=== PATIENT | female | born 1940 | race Caucasian/White ===

== ENCOUNTER 2020-02-07 10:01 | Inpatient (IN) ==
[2020-02-07] MEDS ORDERED: 0.9 % SODIUM CHLORIDE 500 ML IV ONE ×4 (10:12→13:17)
--- NOTE | 2020-02-07 10:41 | Emergency Department Note ---
Weakness HPI General Chief complaint: Weakness Stated complaint: UTI, weakness, unable to ambulate Time Seen by Provider: 02/07/20 10:04 Source: EMS Mode of arrival: EMS Limitations: no limitations History of Present Illness HPI Narrative: This pleasant 79-year-old female comes in by ambulance and accompanied by her caregiver, Severino, who is with her most days between 730 and a.m. and 430 to 7:30 PM. Her son stays with her at night. She is here because of persisting and worsening weakness. She was seen 5 days ago on the and diagnosed with a UTI. She has had these in the past. She is on Macro dantin chronically and cephalexin was added to her regimen. Culture was negative. This may have been suppressed by the nitrofurantoin. Patient denies blood in her stools (is on chronic warfarin for atrial fibrillation). Patient is a fairly good story and but occasionally gets confused per the caregiver. Her last INR 1 month ago was 2.2. Blood pressures are taken at home and are commonly 114-140 systolic and 60-70 diastolic. She has had no recent fever, chills, sweats but always feels quite cold. She reports that she has eaten a lot of cabbage recently. Does not take Tylenol very often maybe 1 time per week. Does have a living will with her son being POA. She does not want aggressive interventions given the high risk of severity and disability and this is consistent with her previous stated wishes per the caregiver. Related Data Home Medications Medication Instructions Recorded Confirmed diphenoxylate-atropine 2.5 1 tab PO BID PRN 04/03/19 02/07/20 mg-0.025 mg tablet ferrous sulfate 325 mg (65 mg 325 mg PO QDAY 05/02/19 02/07/20 iron) tablet polyethylene glycol 3350 [Miralax] 17 g PO PRN PRN 02/07/20 02/07/20 trazodone 200 mg PO QHS 02/07/20 02/07/20 Previous Rx's Medication Instructions Recorded blood sugar diagnostic #50 each 05/17/19 ondansetron 4 mg SL Q4-6HP PRN #14 tab 06/05/19 pantoprazole 40 mg tablet,delayed 40 mg PO QDAY #90 tab 07/12/19 release levothyroxine 50 mcg capsule 50 mcg PO QDAY #90 cap 08/14/19 nitroglycerin 0.4 mg sublingual 0.4 mg SUBLINGUAL PRN PRN #25 tab 09/27/19 tablet colchicine 0.6 mg tablet See Rx Instructions .ROUTE 12/14/19 .COMPLEX #30 tab warfarin 3 mg tablet See Rx Instructions .ROUTE 12/14/19 .COMPLEX #30 tab buspirone 5 mg tablet 5 mg PO BID #180 tab 12/15/19 hydrocodone 10 mg-acetaminophen 1 tab PO Q6H PRN #120 tab 12/21/19 325 mg tablet nitrofurantoin 100 mg PO ONCE #30 cap 01/04/20 monohydrate/macrocrystals 100 mg capsule atorvastatin 40 mg tablet See Rx Instructions .ROUTE 01/11/20 .COMPLEX #90 tab mirabegron 25 mg tablet,extended 25 mg PO Q24H #30 tab 01/11/20 release 24 hr Adjustable Hospital Bed #1 ea NS 01/18/20 metformin 500 mg tablet,extended 500 mg PO QDAY #30 tab 01/23/20 release 24hr cephalexin 500 mg PO QID #28 cap 02/02/20 baclofen 10 mg tablet 10 mg PO BID PRN #60 tab 02/07/20 Allergies Allergy/AdvReac Type Severity Reaction Status Date / Time Sulfa (Sulfonamide Allergy Mild Rash Verified 02/07/20 10:03 Antibiotics) peanut [PEANUT] Allergy Unknown COUGHING Verified 02/07/20 10:03 Doxepin AdvReac Intermediate elevated BP Verified 02/07/20 10:03 Review of Systems ROS ROS Narrative: Denies fevers chills or sweats but is always cold Occasional chest pain but nothing new Some chronic cough. May be a little short of breath No abdominal pain. Did have some nausea. Has some diarrhea. Takes medications for this. No vomiting. No hematochezia No dysuria or frequency No rashes No headaches. Does feel weak No lightheaded dizzy Has chronic anxiety. No depression. PFSH Narrative Patient History Narrative: Narrative: Medical/Surgical/Family History All Active Problems (Updated 02/07/20 @ 14:23 by Sanjay Louis MD) Sepsis associated hypotension (Acute) Anemia (Acute) Acute pyelonephritis (Acute) Septic shock (Acute) Elevated INR (Acute) History of gout (Chronic) Weakness (Acute) Acute UTI (Acute) Adverse reaction to antidepressant drug (Acute) Dizziness (Acute) Frontal headache (Acute) Insomnia (Acute) Urinary tract infection (Acute) Constipation (Acute) Atrial fibrillation (Chronic) Coronary artery disease (Chronic) Chronic diastolic heart failure (Chronic) 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) COPD (chronic obstructive pulmonary disease) (Chronic) Falls frequently (Acute) Simple chronic anemia (Chronic) Decreased mobility in bed (Acute) Fall (Acute) Minor head injury (Acute) Neck pain (Chronic) Insomnia (Chronic) Fatigue (Chronic) Knee pain (Chronic) Hypertension (Chronic) Hip pain (Chronic) Monoclonal paraproteinemia (Chronic) Edema (Chronic) Back pain (Chronic) Anemia, iron deficiency (Chronic) Memory loss (Chronic) Dermatitis (Chronic) Sinus bradycardia (Chronic) TIA (transient ischemic attack) (Chronic) Renal failure (Chronic) Left lumbar radiculopathy (Chronic) Dysphagia, unspecified (Chronic) Impairment of balance (Chronic) Anxiety (Chronic) Tinnitus (Chronic) Thyromegaly (Chronic) Weight loss (Chronic) Arthritis (Chronic) Reduced mobility (Chronic) BMI 24.0-24.9, adult (Chronic) Hypothyroidism (Chronic) Dyspnea (Chronic) Benign essential hypertension (Chronic) Hx pulmonary embolism (Chronic) Pulmonary hypertension (Chronic) GERD (gastroesophageal reflux disease) (Chronic) Asthma (Chronic) Diabetes mellitus (Chronic) Hyperlipidemia (Chronic) Anemia (Chronic) Chronic back pain (Chronic) Urinary incontinence (Chronic) Medical History (Updated 02/07/20 @ 14:23 by Sanjay Louis MD) Actinic keratosis (Inactive) Anemia (Chronic) Anemia, iron deficiency (Chronic) Anxiety (Chronic) Arthritis (Chronic) Asthma (Chronic) Atrial fibrillation (Chronic) Back pain (Chronic) Benign essential hypertension (Chronic) BMI 24.0-24.9, adult (Chronic) Chronic back pain (Chronic) Chronic diastolic heart failure (Chronic) COPD (chronic obstructive pulmonary disease) (Chronic) Coronary artery disease (Chronic) Dermatitis (Chronic) Diabetes mellitus (Chronic) Dysphagia, unspecified (Chronic) Dyspnea (Chronic) Edema (Chronic) Elevated blood pressure reading (Resolved) Encounter for long-term (current) use of medications (Resolved) Encounter for monitoring Coumadin therapy (Resolved) Falls frequently (Acute) Fatigue (Chronic) GERD (gastroesophageal reflux disease) (Chronic) Hip pain (Chronic) History of echocardiogram (Inactive 04/07/16) Hx pulmonary embolism (Chronic) Hyperlipidemia (Chronic) Hypertension (Chronic) Hypothyroidism (Chronic) Impairment of balance (Chronic) Insomnia (Chronic) Knee pain (Chronic) Left lumbar radiculopathy (Chronic) custodial (current) use of anticoagulants (Chronic) Memory loss (Chronic) Monoclonal paraproteinemia (Chronic) Chronically monitored by PCP for anemia. Night sweats (Inactive) Pulmonary hypertension (Chronic) Reduced mobility (Chronic) Renal failure (Chronic) Simple chronic anemia (Chronic) Sinus bradycardia (Chronic) Thyromegaly (Chronic) TIA (transient ischemic attack) (Chronic) Tinnitus (Chronic) Urinary incontinence (Chronic) Weight loss (Chronic) Surgical History H/O heart artery stent (Chronic) x2 post bypass History of (Chronic) History of carpal tunnel release (Chronic) History of carpal tunnel repair (Chronic) History of cholecystectomy (Chronic) History of colon surgery (Chronic) History of hernia repair (Chronic) History of open heart surgery (Chronic) 2009 Status post total shoulder arthroplasty (Chronic) Family History Skin cancer Father Diabetes Unknown Heart disease Unknown Asthma Unknown Social History Smoking Status: Never smoker Alcohol Intake Frequency: does not drink Exam Narrative Narrative: Narrative: General Limitations: no limitations General appearance: alert, cachectic (Mildly.), in no apparent distress, malaise and nontoxic Head Head: atraumatic and normocephalic Eye Eye: Present normal appearance and EOMI ENT ENT: Present normal oropharynx and mucous membranes dry (Mild-moderately.) Neck Neck: Present trachea midline; Absent lymphadenopathy and thyromegaly Chest Chest: Present symmetric chest wall rise Respiratory Respiratory: Present normal lung sounds bilaterally; Absent respiratory distress, rales/crackles, wheezes, stridor, accessory muscle use and prolonged expiratory phase Cardiovascular Cardiovascular: Present regular rate and normal rhythm; Absent systolic murmur and diastolic murmur Adbominal Abdominal: Present soft; Absent distention, tenderness, guarding, rebound, rigidity, organomegaly and mass Extremities Extremities: Absent pedal edema, pretibial edema, calf tenderness and cyanosis Back Back: Absent CVA tenderness (R) and CVA tenderness (L) Neurological Neurological: Present alert and oriented X3 Psychiatric Psychiatric: Present serious, polite and pleasant; Absent depressed, agitated, anxious and poor eye contact Skin Skin: Present cool, dry and pallor (Moderate); Absent cyanosis Course Vital Signs Vital signs: Vital Signs Temperature 98.1 F 02/07/20 10:01 Pulse Rate 62 02/07/20 10:01 Respiratory Rate 22 02/07/20 10:01 Blood Pressure 90/60 02/07/20 10:01 Pulse Oximetry (%) 94 02/07/20 10:01 Temperature 98.1 F 02/07/20 10:01 Pulse Rate 67 02/07/20 13:32 Respiratory Rate 17 02/07/20 14:07 Blood Pressure 119/57 02/07/20 14:07 Pulse Oximetry (%) 95 02/07/20 14:07 MDM MDM Narrative Medical decision making narrative: 10:16 AM - generalized weakness. Uncertain exact etiology. Will do cardiac and metabolic work-up. Seems to be hypotensive. Will give some IV fluids. Will check her INR. EKG is with atrial flutter with variable rates from 3-1 to 2-1 transmission. No ACS findings. Is not dissimilar to old EKG. 12:07 PM - I spoke with knife setter assembler, Dr. Davis, who agrees with repeat troponin and just monitoring further that it is unlikely that this is cardiac with her troponin of 0.10. Her creatinine went from 1.4-2.7 and this is the explanation for present. A future echo could be considered, etc. but urgent change or intervention at this point not indicated. 1:15 PM - patient has had some intermittent hypotension during this ER stay. She has been given now up to 1.5 L of normal saline. She again is going a little bit hypotensive into the upper 70s. We will give an additional 500 cc although she is not a very large person. Nursing will monitor carefully for any changes in respiratory status. 1:26 PM - chest x-ray results: 1. No acute abnormality 2. No interval change since 04/03/2019 1:38 PM - I spoke with blanket washer, Dr. Wilkes, who points out that patient is still probably in some degree of shock with uncertain or unidentified source and he suggests going ahead and doing a CT scan of the chest abdomen and pelvis. Catheterized UA comes back positive with leukocyte esterase and is quite large and multiple WBCs. This then likely could be a source for hypotension even in light of a normal white count and lactic acid and that she was on 2 antibiotics even though they are weaker type, nitrofurantoin and cephalexin. 1:48 PM - I spoke with Dr. Louis, hospitalist, who agrees with imaging and suggests an ultrasound. Patient is already getting the CT of the chest abdomen and pelvis and so this will be pursued. He is willing to admit patient but if patient has a stone or hydronephrosis may need urology which we do not currently have. Patient's INR was also 5.2 at 10:32 this morning. There is no suspicion of current bleeding in that she denies hematochezia or melena and her hemoglobin is stable. 2:43 PM - CT chest abdomen pelvis: 1. Suboptimal evaluation due to lack of intravenous contrast material and patient motion 2. No significant pulmonary parenchymal and melanotic. No evidence for significant pneumonia 3. No hydronephrosis or hydroureter Patient will therefore be admitted under the guidance of Dr. Louis, hospitalist. She is DNR per her request after discussing this with her. Lab Data Result diagrams: 02/07/20 10:10 02/07/20 10:10 Labs: Lab Results 02/07/20 02/07/20 02/07/20 Range/Units 10:10 10:10 10:10 WBC 7.8 (4.50-11.00) K/mcL RBC 2.94 L (3.59-5.38) M/mcL Hgb 9.4 L (11.2-15.7) g/dL Hct 29.6 L (34.1-44.9) % POC Hct (36.0-48.0) % MCV 100.7 H (80.0-100.0) fL MCH 32.0 (26.0-34.0) pg MCHC 31.8 (31.0-36.0) g/dL RDW 12.6 (11.5-14.5) % Plt Count 180 (140-440) K/mcL MPV 10.6 H (7.4-10.4) fL Gran % 69.7 (38.0-78.0) % Lymph % (Auto) 18.7 (15.5-49.0) % Cole % (Auto) 9.1 (1.0-12.0) % Eos % (Auto) 2.4 (0.0-7.0) % Baso % (Auto) 0.1 (0.0-2.0) % Gran # 5.43 (1.80-8.00) K/mcL Lymph # (Auto) 1.46 L (1.50-4.80) K/mcL Cole # (Auto) 0.71 (0.10-0.90) K/mcL Eos # (Auto) 0.19 (0.00-0.70) K/mcL Baso # (Auto) 0.01 (0.00-0.30) K/mcL POC PT (11.9-14.5) sec POC INR (0.9-1.2) VBG Lactic Acid 0.8 (0.5-2.0) mmol/L POC Sodium (133-145) mmol/L Sodium 131 L (133-145) mmol/L POC Potassium (3.3-5.1) mmol/L Potassium 5.8 H (3.3-5.1) mmol/L POC Chloride (96-108) mmol/L Chloride 102 (96-108) mmol/L Carbon Dioxide 14 L (22-30) mmol/L POC Total CO2 (22-30) mmol/L Anion Gap 15.0 (8-16) POC BUN (8-23) mg/dl BUN 84 H (8-23) mg/dl Creatinine 2.7 H (0.6-1.1) mg/dl POC Creatinine (0.6-1.1) mg/dl GFR Calculation 16 Glucose 123 H (70-105) mg/dL POC Glucose (70-105) mg/dL Calcium 8.2 L (8.6-10.4) mg/dl POC WB Ioniz Calcium (1.16-1.32) mmol/L Total Bilirubin 0.2 (0.0-1.0) mg/dL AST 13 (0-37) U/l ALT 9 (0-40) U/l Alkaline Phosphatase 56 (39-117) U/L Troponin T (0-0.03) ng/ml Total Protein 6.3 (5.9-8.4) gm/dL Albumin 3.1 L (3.2-5.2) gm/dL Globulin 3.2 (2.2-3.7) gm/dL Albumin/Globulin Ratio 1.0 (1.0-2.3) Procalcitonin (<0.10) ng/mL Urine Color Urine Appearance Urine pH (5.0-9.0) Ur Specific [place] (1.000-1.035) Urine Protein (NEG) mg/dL Urine Glucose (UA) (NEG) mg/dL Urine Ketones (NEG) mg/dL Urine Occult Blood (<0.03) mg/dL Urine Nitrate (NEG) Urine Bilirubin (NEG) mg/dL Urine Urobilinogen (NEG) mg/dL Ur Leukocyte Esterase (NEG) /uL Urine RBC (0-1) /hpf Urine WBC (0-4) /hpf Ur Squamous Epith Cells (0-4) /hpf Urine Bacteria (0) /hpf Urine Mucus (0) /hpf Ur Culture Indicated? 02/07/20 02/07/20 02/07/20 Range/Units 10:10 10:10 10:20 WBC (4.50-11.00) K/mcL RBC (3.59-5.38) M/mcL Hgb (11.2-15.7) g/dL Hct (34.1-44.9) % POC Hct (36.0-48.0) % MCV (80.0-100.0) fL MCH (26.0-34.0) pg MCHC (31.0-36.0) g/dL RDW (11.5-14.5) % Plt Count (140-440) K/mcL MPV (7.4-10.4) fL Gran % (38.0-78.0) % Lymph % (Auto) (15.5-49.0) % Cole % (Auto) (1.0-12.0) % Eos % (Auto) (0.0-7.0) % Baso % (Auto) (0.0-2.0) % Gran # (1.80-8.00) K/mcL Lymph # (Auto) (1.50-4.80) K/mcL Cole # (Auto) (0.10-0.90) K/mcL Eos # (Auto) (0.00-0.70) K/mcL Baso # (Auto) (0.00-0.30) K/mcL POC PT (11.9-14.5) sec POC INR (0.9-1.2) VBG Lactic Acid (0.5-2.0) mmol/L POC Sodium (133-145) mmol/L Sodium (133-145) mmol/L POC Potassium (3.3-5.1) mmol/L Potassium (3.3-5.1) mmol/L POC Chloride (96-108) mmol/L Chloride (96-108) mmol/L Carbon Dioxide (22-30) mmol/L POC Total CO2 (22-30) mmol/L Anion Gap (8-16) POC BUN (8-23) mg/dl BUN (8-23) mg/dl Creatinine (0.6-1.1) mg/dl POC Creatinine (0.6-1.1) mg/dl GFR Calculation Glucose (70-105) mg/dL POC Glucose (70-105) mg/dL Calcium (8.6-10.4) mg/dl POC WB Ioniz Calcium (1.16-1.32) mmol/L Total Bilirubin (0.0-1.0) mg/dL AST (0-37) U/l ALT (0-40) U/l Alkaline Phosphatase (39-117) U/L Troponin T 0.10 H* (0-0.03) ng/ml Total Protein (5.9-8.4) gm/dL Albumin (3.2-5.2) gm/dL Globulin (2.2-3.7) gm/dL Albumin/Globulin Ratio (1.0-2.3) Procalcitonin 0.19 (<0.10) ng/mL Urine Color Yellow Urine Appearance Cloudy Urine pH 5.0 (5.0-9.0) Ur Specific [place] 1.014 (1.000-1.035) Urine Protein Neg (NEG) mg/dL Urine Glucose (UA) Negative (NEG) mg/dL Urine Ketones Neg (NEG) mg/dL Urine Occult Blood 0.03 A (<0.03) mg/dL Urine Nitrate Neg (NEG) Urine Bilirubin Neg (NEG) mg/dL Urine Urobilinogen Neg (NEG) mg/dL Ur Leukocyte Esterase 250 A (NEG) /uL Urine RBC 4 H (0-1) /hpf Urine WBC > 182 H (0-4) /hpf Ur Squamous Epith Cells 4 (0-4) /hpf Urine Bacteria Few A (0) /hpf Urine Mucus Few (0) /hpf Ur Culture Indicated? Yes 02/07/20 02/07/20 02/07/20 Range/Units 10:46 11:03 12:13 WBC (4.50-11.00) K/mcL RBC (3.59-5.38) M/mcL Hgb (11.2-15.7) g/dL Hct (34.1-44.9) % POC Hct 26.0 L (36.0-48.0) % MCV (80.0-100.0) fL MCH (26.0-34.0) pg MCHC (31.0-36.0) g/dL RDW (11.5-14.5) % Plt Count (140-440) K/mcL MPV (7.4-10.4) fL Gran % (38.0-78.0) % Lymph % (Auto) (15.5-49.0) % Cole % (Auto) (1.0-12.0) % Eos % (Auto) (0.0-7.0) % Baso % (Auto) (0.0-2.0) % Gran # (1.80-8.00) K/mcL Lymph # (Auto) (1.50-4.80) K/mcL Cole # (Auto) (0.10-0.90) K/mcL Eos # (Auto) (0.00-0.70) K/mcL Baso # (Auto) (0.00-0.30) K/mcL POC PT 57.7 H (11.9-14.5) sec POC INR 5.2 H (0.9-1.2) VBG Lactic Acid (0.5-2.0) mmol/L POC Sodium 133 (133-145) mmol/L Sodium (133-145) mmol/L POC Potassium 5.8 H (3.3-5.1) mmol/L Potassium (3.3-5.1) mmol/L POC Chloride 105 (96-108) mmol/L Chloride (96-108) mmol/L Carbon Dioxide (22-30) mmol/L POC Total CO2 18 L (22-30) mmol/L Anion Gap (8-16) POC BUN 92 H (8-23) mg/dl BUN (8-23) mg/dl Creatinine (0.6-1.1) mg/dl POC Creatinine 2.6 H (0.6-1.1) mg/dl GFR Calculation Glucose (70-105) mg/dL POC Glucose 119 H (70-105) mg/dL Calcium (8.6-10.4) mg/dl POC WB Ioniz Calcium 1.23 (1.16-1.32) mmol/L Total Bilirubin (0.0-1.0) mg/dL AST (0-37) U/l ALT (0-40) U/l Alkaline Phosphatase (39-117) U/L Troponin T 0.08 H* (0-0.03) ng/ml Total Protein (5.9-8.4) gm/dL Albumin (3.2-5.2) gm/dL Globulin (2.2-3.7) gm/dL Albumin/Globulin Ratio (1.0-2.3) Procalcitonin (<0.10) ng/mL Urine Color Urine Appearance Urine pH (5.0-9.0) Ur Specific [place] (1.000-1.035) Urine Protein (NEG) mg/dL Urine Glucose (UA) (NEG) mg/dL Urine Ketones (NEG) mg/dL Urine Occult Blood (<0.03) mg/dL Urine Nitrate (NEG) Urine Bilirubin (NEG) mg/dL Urine Urobilinogen (NEG) mg/dL Ur Leukocyte Esterase (NEG) /uL Urine RBC (0-1) /hpf Urine WBC (0-4) /hpf Ur Squamous Epith Cells (0-4) /hpf Urine Bacteria (0) /hpf Urine Mucus (0) /hpf Ur Culture Indicated? Discharge Plan Patient/Caregiver Discharge Instructions Pt seen by COMMERCIAL LOAN OFFICER/PA only: No Clinical Impression: Weakness, Acute pyelonephritis, Septic shock, Elevated INR Anemia Qualifiers: Anemia type: unspecified type Qualified Code(s): D64.9 - Anemia, unspecified Patient Disposition: Xfer As Inpt ([facility]) Condition: Fair Follow up with: Lesvia Joseph ARNP [Primary Care Provider] - Prescriptions: No Action diphenoxylate-atropine [Lomotil] 2.5-0.025 mg tablet 1 tab PO BID PRN (Reason: Diarrhea) RF: 0 ferrous sulfate [FeroSul] 325 mg (65 mg iron) tablet 325 mg PO QDAY RF: 0 hydrocodone-acetaminophen 10-325 mg tablet 1 tab PO Q6H PRN (Reason: Pain) Qty: 120 RF: 0 Myrbetriq 25 mg tablet extended release 24 hr 25 mg PO Q24H Qty: 30 RF: 2 (DME) True Metrix Glucose Test Strip strip See Rx Instructions .ROUTE .MEDSUPPLY Qty: 50 RF: 5 pantoprazole 40 mg tablet,delayed release (DR/EC) 40 mg PO QDAY Qty: 90 RF: 4 levothyroxine 50 mcg capsule 50 mcg PO QDAY Qty: 90 RF: 2 nitroglycerin [Nitrostat] 0.4 mg tablet, sublingual 0.4 mg SUBLINGUAL PRN PRN (Reason: chest pain) Qty: 25 RF: 1 colchicine 0.6 mg tablet See Rx Instructions .ROUTE .COMPLEX Qty: 30 RF: 3 warfarin 3 mg tablet See Rx Instructions .ROUTE .COMPLEX Qty: 30 RF: 2 buspirone 5 mg tablet 5 mg PO BID Qty: 180 RF: 1 nitrofurantoin monohyd/m-cryst [Macrobid] 100 mg capsule 100 mg PO ONCE Qty: 30 RF: 4 atorvastatin 40 mg tablet See Rx Instructions .ROUTE .COMPLEX Qty: 90 RF: 0 (DME) Adjustable Hospital Bed Qty: 1 RF: 0 metformin 500 mg tablet extended release 24hr 500 mg PO QDAY Qty: 30 RF: 1 baclofen 10 mg tablet 10 mg PO BID PRN (Reason: pain) Qty: 60 RF: 6 ondansetron 4 MG tablet 4 mg SL Q4-6HP PRN (Reason: nausea or vomiting) Qty: 14 RF: 0 cephalexin [cephalexin] 500 MG capsule 500 mg PO QID Qty: 28 RF: 0 trazodone 50 mg Tablet 200 mg PO QHS RF: 0 polyethylene glycol 3350 [Miralax] 17 gram/dose powder 17 g PO PRN PRN (Reason: Constipation) RF: 0
[2020-02-07 10:57] LABS: Basophils # (Auto) 0.01 K/mcL (0.00-0.30); Basophils % (Auto) 0.1 % (0.0-2.0); Eosinophils # (Auto) 0.19 K/mcL (0.00-0.70); Eosinophils % (Auto) 2.4 % (0.0-7.0); Granulocytes % (Auto) 69.7 % (38.0-78.0); Hematocrit 29.6 % (34.1-44.9); Hemoglobin 9.4 g/dL (11.2-15.7); Lymphocytes # (Auto) 1.46 K/mcL (1.50-4.80); Lymphocytes % (Auto) 18.7 % (15.5-49.0); Mean Cell Volume 100.7 fL (80.0-100.0); Mean Corpuscular HGB Conc 31.8 g/dL (31.0-36.0); Mean Platelet Volume 10.6 fL (7.4-10.4); Monocytes # (Auto) 0.71 K/mcL (0.10-0.90); Monocytes % (Auto) 9.1 % (1.0-12.0); Platelet Count 180 K/mcL (140-440); RBC 2.94 M/mcL (3.59-5.38); Red Cell Distribution Width 12.6 % (11.5-14.5); WBC 7.8 K/mcL (4.50-11.00)
[2020-02-07 11:03] LABS: POC Blood Urea Nitrogen 92 mg/dl (8-23); POC CO2 18 mmol/L (22-30); POC Calcium, Ionized 1.23 mmol/L (1.16-1.32); POC Chloride 105 mmol/L (96-108); POC Creatinine 2.6 mg/dl (0.6-1.1); POC Glucose, Random 119 mg/dL (70-105); POC Potassium 5.8 mmol/L (3.3-5.1); POC Sodium 133 mmol/L (133-145)
[2020-02-07 11:05] LABS: POC INR 5.2 (0.9-1.2); POC Pro Time 57.7 sec (11.9-14.5)
--- NOTE | 2020-02-07 11:20 | XRay Report ---
INDICATION: weakness TECHNIQUE: AP portable semiupright chest x-ray COMPARISON: None FINDINGS:Previous median sternotomy Lungs:Lungs are negative. No focal pulmonary parenchymal infiltrate or mass Heart, vascular:No significant cardiomegaly. Pulmonary vascularity is normal. No pulmonary edema or pulmonary congestion Mediastinum, lucius:No mediastinal widening. No hilar mass Pleura:No pleural fluid. No pleural-based mass or calcification Skeletal:Negative. IMPRESSION: 1. No acute abnormality 2. No interval change since 04/03/2019 Interpreted and Authenticated by: Seymour Gannon 02/07/20
[2020-02-07 11:23] LABS: ALT/SGPT 9 U/l (0-40); AST/SGOT 13 U/l (0-37); Albumin 3.1 gm/dL (3.2-5.2); Alkaline Phosphatase 56 U/L (39-117); Bilirubin,Total 0.2 mg/dL (0.0-1.0); Calcium 8.2 mg/dl (8.6-10.4); Chloride 102 mmol/L (96-108); Globulin 3.2 gm/dL (2.2-3.7); Glucose 123 mg/dL (70-105)
[2020-02-07 11:26] LABS: Blood Urea Nitrogen 84 mg/dl (8-23); Carbon Dioxide 14 mmol/L (22-30); Glomerular Filtration Rate 16
[2020-02-07 12:19] LABS: Appearance,Urine CLOUDY; Bacteria,Urine FEW /hpf (0); Bilirubin,Urine NEG (NEG); Color,Urine YELLOW; Culture Indicated,Urine YES; Glucose,Urine (UA) NEGATIVE (NEG); Ketones,Urine NEG (NEG); Leukocyte Esterase,Urine 250 /uL (NEG); Mucus,Urine FEW /hpf (0); Nitrate,Urine NEG (NEG); Protein,Urine NEG (NEG); Specific Gravity,Urine 1.014 (1.000-1.035); Urine Blood 0.03 mg/dL (<0.03); Urine RBC 4 /hpf (0-1); Urine Squamous Epithelial Cell 4 /hpf (0-4); Urine WBC > 182 /hpf (0-4); Urobilinogen,Urine NEG (NEG)
[2020-02-07] MEDS ORDERED: PIPERACILLIN SODIUM/TAZOBACTAM 3.375 GM in DEXTROSE 5% IN WATER 50 ML IV ONE (13:51)
--- NOTE | 2020-02-07 14:29 | Cat Scan Report ---
INDICATION: shock, hypotension, ARF unexplained COMPARISON: Previous abdominal and pelvic CT scans dated 08/25/2012. Previous chest x-ray dated 02/07/2020 TECHNIQUE: Axial images were obtained through the chest,abdomen and pelvis. Sagittally and coronally reformatted images. Intravenous contrast material was not administered FINDINGS: Suboptimal evaluation. The patient is unable to suspend respiration. Patient was also scanned with the arms at her side rather than above her head. Chest CT: Lungs:Right lung is essentially negative. There is minimal infiltrate or scarring in the right upper lobe. This is based against the right major fissure. There is a second small focus which is laterally located and is peripheral in location. No right lung mass. No parenchymal consolidation. Left lower lobe is not well visualized due to patient motion. There is no parenchymal consolidation. No detectable mass. Mediastinum:Negative limits of noncontrast enhanced examination. There is densely calcified adenopathy consistent with old granulomatous disease. No significant noncalcified adenopathy. Thoracic aorta is calcified. Heart:Borderline cardiomegaly. There is severe calcified coronary artery disease. Patient has undergone previous coronary artery bypass procedure Pleura:No pleural effusion. No pleural-based mass or calcification Axilla, supraclavicular regions, chest wall:Nonacute fracture of the proximal right humerus. No pathologic axillary adenopathy. Chest wall is negative. Musculoskeletal:No thoracic compression fractures. There is exaggeration of normal thoracic kyphosis. Patient has undergone previous median sternotomy no acute or chronic rib fracture Abdomen/Pelvis: Liver:Liver is suboptimally visualized due to lack of intravenous contrast material. No detectable focal abnormality. Liver contour is smooth. Gallbladder, bilary:Surgical clips in the gallbladder fossa. No dilated bile ducts Spleen:No splenomegaly. Pancreas:No pancreatic mass. No pancreatic duct dilatation. No peripancreatic abnormality Adrenal glands:Negative Kidneys, ureters, bladder:No hydronephrosis. No obstructing or nonobstructing renal calculi. No detectable mass. No hydroureter or ureteral stone No bladder calculi Gastrointestinal:No detectable colonic mass. No diverticulitis.. There is an anastomotic suture line in the right side of the colon consistent with previous partial colectomy. Small bowel is negative. No mechanical small bowel obstruction Stomach and duodenum are unremarkable. Appendix: The appendix is negative Vascular:Extensive atherosclerotic calcification. There is calcification at the origin of the superior mesenteric artery and celiac trunk. 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 Lymphatic:No retroperitoneal or pathologic mesenteric adenopathy Mesentery, peritoneum:No intra-peritoneal fluid. No intra-abdominal abscess. No pneumoperitoneum Reproductive:Uterus is not identified. No adnexal mass Musculoskeletal:Mild compression deformity of the L1 vertebral body. No acute compression fracture. Sacrum is negative. Pelvis and hips are negative. No fracture. No evidence for avascular necrosis IMPRESSION: 1. Suboptimal evaluation due to lack of intravenous contrast material and patient motion 2. No significant pulmonary parenchymal and melanotic. No evidence for significant pneumonia 3. No hydronephrosis or hydroureter The exam was performed using radiation dose optimization techniques including, but not limited to, automated exposure control, adjustment of the mA and/or kV according to patient size and use of iterative reconstruction technique. Interpreted and Authenticated by: Seymour Gannon 02/07/20
[2020-02-07 14:56] LABS: Phosphorous 4.7 mg/dL (2.7-4.5)
--- NOTE | 2020-02-07 15:08 | Nephrology Consult Note ---
HPI Data of Consult Patient: new to practice Consult date: 02/07/20 Requesting physician: Chris Reyez Primary Care Provider: Lesvia Joseph Consult Narrative Chief complaint: Weakness Reason for consult: Acute kidney injury History of present illness: Cecy Mcclellan is a 79-year-old female presented to ED on 02/07/20 by ambulance and accompanied by her caregiver and son for worsening weakness. She was seen in ED on 02/02/20 and diagnosed with UTI. Cephalexin was added to Macrodantin which she takes chronically. Culture was negative. In ED, her work up was significant for hypotension, acute kidney injury with hy perkalemia, high anion gap metabolic acidosis and hyponatremia. cc:: CC: Review of Systems Review of systems: Limited due to mental status and hard of hearing Constitutional Constitutional: Present weakness Cardiovascular Cardiovascular: Absent chest pain and leg edema Respiratory Respiratory: Absent cough and dyspnea Gastrointestinal Gastrointestinal: Absent abdominal pain and nausea Genitourinary Genitourinary: Absent dysuria and hematuria Integumentary Integumentary: Absent wounds Neurological Neurological: Present weakness Psychiatric Psychiatric: Absent anxiety and panic attacks PFSH PFSH All Active Problems (Updated 02/07/20 @ 15:06 by Marissa Wilkes MD) Hyperkalemia, diminished renal excretion (Acute) Metabolic acidosis (Acute) Hyponatremia with decreased serum osmolality (Acute) Acute kidney injury (Acute) Sepsis associated hypotension (Acute) Anemia (Acute) Acute pyelonephritis (Acute) Septic shock (Acute) Elevated INR (Acute) History of gout (Chronic) Weakness (Acute) Acute UTI (Acute) Adverse reaction to antidepressant drug (Acute) Dizziness (Acute) Frontal headache (Acute) Insomnia (Acute) Urinary tract infection (Acute) Constipation (Acute) Atrial fibrillation (Chronic) Coronary artery disease (Chronic) Chronic diastolic heart failure (Chronic) 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) COPD (chronic obstructive pulmonary disease) (Chronic) Falls frequently (Acute) Simple chronic anemia (Chronic) Decreased mobility in bed (Acute) Fall (Acute) Minor head injury (Acute) Neck pain (Chronic) Insomnia (Chronic) Fatigue (Chronic) Knee pain (Chronic) Hypertension (Chronic) Hip pain (Chronic) Monoclonal paraproteinemia (Chronic) Edema (Chronic) Back pain (Chronic) Anemia, iron deficiency (Chronic) Memory loss (Chronic) Dermatitis (Chronic) Sinus bradycardia (Chronic) TIA (transient ischemic attack) (Chronic) Renal failure (Chronic) Left lumbar radiculopathy (Chronic) Dysphagia, unspecified (Chronic) Impairment of balance (Chronic) Anxiety (Chronic) Tinnitus (Chronic) Thyromegaly (Chronic) Weight loss (Chronic) Arthritis (Chronic) Reduced mobility (Chronic) BMI 24.0-24.9, adult (Chronic) Hypothyroidism (Chronic) Dyspnea (Chronic) Benign essential hypertension (Chronic) Hx pulmonary embolism (Chronic) Pulmonary hypertension (Chronic) GERD (gastroesophageal reflux disease) (Chronic) Asthma (Chronic) Diabetes mellitus (Chronic) Hyperlipidemia (Chronic) Anemia (Chronic) Chronic back pain (Chronic) Urinary incontinence (Chronic) Medical History (Updated 02/07/20 @ 15:06 by Marissa Wilkes MD) Actinic keratosis (Inactive) Anemia (Chronic) Anemia, iron deficiency (Chronic) Anxiety (Chronic) Arthritis (Chronic) Asthma (Chronic) Atrial fibrillation (Chronic) Back pain (Chronic) Benign essential hypertension (Chronic) BMI 24.0-24.9, adult (Chronic) Chronic back pain (Chronic) Chronic diastolic heart failure (Chronic) COPD (chronic obstructive pulmonary disease) (Chronic) Coronary artery disease (Chronic) Dermatitis (Chronic) Diabetes mellitus (Chronic) Dysphagia, unspecified (Chronic) Dyspnea (Chronic) Edema (Chronic) Elevated blood pressure reading (Resolved) Encounter for long-term (current) use of medications (Resolved) Encounter for monitoring Coumadin therapy (Resolved) Falls frequently (Acute) Fatigue (Chronic) GERD (gastroesophageal reflux disease) (Chronic) Hip pain (Chronic) History of echocardiogram (Inactive 04/07/16) Hx pulmonary embolism (Chronic) Hyperlipidemia (Chronic) Hypertension (Chronic) Hypothyroidism (Chronic) Impairment of balance (Chronic) Insomnia (Chronic) Knee pain (Chronic) Left lumbar radiculopathy (Chronic) 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 Night sweats (Inactive) Pulmonary hypertension (Chronic) Reduced mobility (Chronic) Renal failure (Chronic) Simple chronic anemia (Chronic) Sinus bradycardia (Chronic) Thyromegaly (Chronic) TIA (transient ischemic attack) (Chronic) Tinnitus (Chronic) Urinary incontinence (Chronic) Weight loss (Chronic) Surgical History H/O heart artery stent (Chronic) x2 post bypass History of (Chronic) History of carpal tunnel release (Chronic) History of carpal tunnel repair (Chronic) History of cholecystectomy (Chronic) History of colon surgery (Chronic) History of hernia repair (Chronic) History of open heart surgery (Chronic) 2009 Status post total shoulder arthroplasty (Chronic) Family History Unknown Heart disease Diabetes Asthma Father Skin cancer Social History marital status: single physical activity: none smoking status: Never smoker alcohol intake frequency: does not drink seatbelt use: sometimes MEDS/ALLERGIES Home Medications and Allergies Home Medications Medication Instructions Recorded Confirmed Type diphenoxylate-atropine 2.5 1 tab PO BID PRN 04/03/19 02/07/20 History mg-0.025 mg tablet ferrous sulfate 325 mg (65 mg 325 mg PO QDAY 05/02/19 02/07/20 History iron) tablet blood sugar diagnostic #50 each 05/17/19 02/07/20 Rx ondansetron 4 mg SL Q4-6HP PRN #14 tab 06/05/19 02/07/20 Rx pantoprazole 40 mg tablet,delayed 40 mg PO QDAY #90 tab 07/12/19 02/07/20 Rx release levothyroxine 50 mcg capsule 50 mcg PO QDAY #90 cap 08/14/19 02/07/20 Rx nitroglycerin 0.4 mg sublingual 0.4 mg SUBLINGUAL PRN PRN #25 tab 09/27/19 02/07/20 Rx tablet colchicine 0.6 mg tablet See Rx Instructions .ROUTE 12/14/19 02/07/20 Rx .COMPLEX #30 tab warfarin 3 mg tablet See Rx Instructions .ROUTE 12/14/19 02/07/20 Rx .COMPLEX #30 tab buspirone 5 mg tablet 5 mg PO BID #180 tab 12/15/19 02/07/20 Rx hydrocodone 10 mg-acetaminophen 1 tab PO Q6H PRN #120 tab 12/21/19 02/07/20 Rx 325 mg tablet nitrofurantoin 100 mg PO ONCE #30 cap 01/04/20 02/07/20 Rx monohydrate/macrocrystals 100 mg capsule atorvastatin 40 mg tablet See Rx Instructions .ROUTE 01/11/20 02/07/20 Rx .COMPLEX #90 tab mirabegron 25 mg tablet,extended 25 mg PO Q24H #30 tab 01/11/20 02/07/20 Rx release 24 hr Adjustable Hospital Bed #1 ea NS 01/18/20 02/07/20 Rx metformin 500 mg tablet,extended 500 mg PO QDAY #30 tab 01/23/20 02/07/20 Rx release 24hr cephalexin 500 mg PO QID #28 cap 02/02/20 02/07/20 Rx baclofen 10 mg tablet 10 mg PO BID PRN #60 tab 02/07/20 02/07/20 Rx polyethylene glycol 3350 [Miralax] 17 g PO PRN PRN 02/07/20 02/07/20 History trazodone 200 mg PO QHS 02/07/20 02/07/20 History Allergies Allergy/AdvReac Type Severity Reaction Status Date / Time Sulfa (Sulfonamide Allergy Mild Rash Verified 02/07/20 10:03 Antibiotics) peanut [PEANUT] Allergy Unknown COUGHING Verified 02/07/20 10:03 Doxepin AdvReac Intermediate elevated BP Verified 02/07/20 10:03 Physical Examination Vital Signs Vital signs: Temp Pulse Resp BP Pulse Ox 98.1 F 76 13 81/41 98 02/07/20 10:01 02/07/20 14:41 02/07/20 14:41 02/07/20 14:41 02/07/20 14:41 General Appearance General appearance: cachectic and frail Neck Neck: no JVD Respiratory Respiratory: clear Cardiovascular Cardiology: no edema, regular rate and regular rhythm Gastrointestinal Gastrointestinal: no tenderness Integumentary Integumentary: cool/clammy and ecchymotic Psychiatric Psychiatric: mood/affect appropriate and cooperative Results Lab Results Result Diagrams: 02/07/20 10:10 02/07/20 10:10 Lab results: Most recent lab results Calcium 8.2 mg/dl (8.6-10.4) L 02/07/20 10:10 Phosphorus 4.7 mg/dL (2.7-4.5) H 02/07/20 12:13 Magnesium 1.2 mg/dL (1.6-2.5) L 02/07/20 12:13 A/P Assessment and plan (1) Acute kidney injury: Assessment and plan: Cecy Mcclellan is a 79-year-old female presented to ED on 02/07/20 by ambulance and accompanied by her caregiver and son for worsening weakness. She was seen in ED on 02/02/20 and diagnosed with UTI. Cephalexin was added to Macrodantin which she takes chronically. Culture was negative. In ED, her work up was significant for hypotension, acute kidney injury with hyperkalemia, high anion gap metabolic acidosis and hyponatremia. Acute kidney injury with hyperkalemia, high anion gap metabolic acidosis and hyponatremia, associated with Lisinopril, Spironolactone and Metformin, present on arrival. Intravascular volume depletion was suspected and IV fluid resuscitation is being given. Work up: Urinalysis on 02/07/20: Yellow, Cloudy, pH 5.0, SG 1.014, protein negative, occult blood 0.03, leukocyte esterase 250, urine WBC >182. CT Chest, Abdomen, Pelvis wo contrast on 02/07/20: Suboptimal evaluation due to lack of intravenous contrast material and patient motion. No significant pulmonary parenchymal and melanotic. No evidence for significant pneumonia. No hydronephrosis or hydroureter. Progress: Serum creatinine increased from 1.4 to 2.7 in the past 5 days. Urine output: 600 ml after [place] placement in ED. Metabolic acidosis. Hyponatremia. Hyperkalemia. No fluid overload. Recommendations/Plan: Change NS/LR to Sodium Bicarbonate 150 mEq in 1L D5W at 50 ml/hour for hyponatremia and metabolic acidosis. No urgent acute hemodialysis need. Avoid NSAIDs, nephrotoxic medications and IV contrast. Monitor BMP and urine output. Status: Acute (2) Hyponatremia with decreased serum osmolality: Status: Acute (3) Metabolic acidosis: Status: Acute (4) Hyperkalemia, diminished renal excretion: Status: Acute Time Spent With Patient Time: Total time spent is greater than 50% in coordination of care (as documented) at patient's floor/unit and/or counseling patient:
[2020-02-07] MEDS ORDERED: LACTATED RINGERS 1,000 ML IV SCH ×3 (16:00→16:45)
[2020-02-07] MEDS ORDERED: DEXTROSE 50% 50 ML VIAL IV PRN (16:16)
[2020-02-07] MEDS ORDERED: DIPHENOXYLATE HCL/ATROPINE 1 TABLET PO PRN (16:16)
[2020-02-07] MEDS ORDERED: BACLOFEN 10 MG TABLET PO PRN (16:16)
[2020-02-07] MEDS ORDERED: WARFARIN 3 MG TABLET PO SCH (16:16)
[2020-02-07] MEDS ORDERED: DEXTROSE 31 GM ORAL.SUSP PO PRN (16:16)
[2020-02-07] MEDS ORDERED: ONDANSETRON 4 MG/2 ML VIAL IV PRN (16:16)
[2020-02-07] MEDS ORDERED: ACETAMINOPHEN 325 MG TABLET PO PRN (16:16)
[2020-02-07] MEDS ORDERED: PIPERACILLIN SODIUM/TAZOBACTAM 3.375 GM in DEXTROSE 5% IN WATER 50 ML IV SCH (16:16)
[2020-02-07] MEDS ORDERED: HYDROcodone/APAP 10/325MG TABLET PO PRN (16:16)
--- NOTE | 2020-02-07 16:19 | Internal Med History&Physical ---
HPI History of Present Illness Patient information: Note initiated : 02/07/20 at 4:12 pm Service Date, if different from initiated Date: [] Patient: Cecy Mcclellan a 79 y/o F admitted on 02/07/20 for UTI, weakness, unable to ambulate. Chief Complaint: [] weakness, anorexia History of present illness: Ms. Mcclellan is a 79 year old F brought in by her caregiver Katarzyna. Pt had a UTI diagnosed and started on treatment Wednesday02/02/2020. Pt had loaded WBC and mod large amount bacteria. She was treated with keflex. Initially the pt had confusion and lethargy and nausea. She did not have dysuria or hematuria. Pt did not improve completely still having confusion and anorexia. Pt was then brought back in and urine again lots of wbc but not many bacteria now. Pt had CT scan showing no stones or obstruction but bladder mildly full. Buchanan was place with return 400cc concentrated urine. Pt with acute worsening cr baseline Wednesday and 2.7 today with mod hypotension. Admitted for sepsis Constitutional Constitutional: Present anorexia, daytime sleepiness, fatigue, lethargy, malaise and weakness EENT Eyes: Present as per HPI Ears: Present as per HPI Nose, mouth and throat: Present as per HPI Cardiovascular Cardiovascular: Absent chest pain, edema, leg edema and rapid heart rate Respiratory Respiratory: Absent cough, dyspnea on exertion and excessive phlegm production Gastrointestinal Gastrointestinal: Present diarrhea and nausea; Absent vomiting Genitourinary Genitourinary: Absent difficulty voiding and urinary incontinence Musculoskeletal Musculoskeletal: Present as per HPI and muscle weakness; Absent muscle cramps Integumentary Integumentary: Present as per HPI Neurological Neurological: Present confusion Psychiatric Psychiatric: Present change in appetite and confusion Endocrine Endocrine: Present fatigue PFSH PFSH All Active Problems (Updated 02/07/20 @ 17:07 by Sanjay Louis MD) Hyperkalemia, diminished renal excretion (Acute) Metabolic acidosis (Acute) Hyponatremia with decreased serum osmolality (Acute) Acute kidney injury (Acute) Sepsis associated hypotension (Acute) Anemia (Acute) Acute pyelonephritis (Acute) Septic shock (Acute) Elevated INR (Acute) History of gout (Chronic) Weakness (Acute) Acute UTI (Acute) Adverse reaction to antidepressant drug (Acute) Dizziness (Acute) Frontal headache (Acute) Insomnia (Acute) Urinary tract infection (Acute) Constipation (Acute) Atrial fibrillation (Chronic) Coronary artery disease (Chronic) Chronic diastolic heart failure (Chronic) penitentiary (current) use of anticoagulants (Chronic) COPD (chronic obstructive pulmonary disease) (Chronic) Falls frequently (Acute) Simple chronic anemia (Chronic) Decreased mobility in bed (Acute) Fall (Acute) Minor head injury (Acute) Neck pain (Chronic) Insomnia (Chronic) Fatigue (Chronic) Knee pain (Chronic) Hypertension (Chronic) Hip pain (Chronic) Monoclonal paraproteinemia (Chronic) Edema (Chronic) Back pain (Chronic) Anemia, iron deficiency (Chronic) Memory loss (Chronic) Dermatitis (Chronic) Sinus bradycardia (Chronic) TIA (transient ischemic attack) (Chronic) Renal failure (Chronic) Left lumbar radiculopathy (Chronic) Dysphagia, unspecified (Chronic) Impairment of balance (Chronic) Anxiety (Chronic) Tinnitus (Chronic) Thyromegaly (Chronic) Weight loss (Chronic) Arthritis (Chronic) Reduced mobility (Chronic) BMI 24.0-24.9, adult (Chronic) Hypothyroidism (Chronic) Dyspnea (Chronic) Benign essential hypertension (Chronic) Hx pulmonary embolism (Chronic) Pulmonary hypertension (Chronic) GERD (gastroesophageal reflux disease) (Chronic) Asthma (Chronic) Diabetes mellitus (Chronic) Hyperlipidemia (Chronic) Anemia (Chronic) Chronic back pain (Chronic) Urinary incontinence (Chronic) Medical History Actinic keratosis (Inactive) Anemia (Chronic) Anemia, iron deficiency (Chronic) Anxiety (Chronic) Arthritis (Chronic) Asthma (Chronic) Atrial fibrillation (Chronic) Back pain (Chronic) Benign essential hypertension (Chronic) BMI 24.0-24.9, adult (Chronic) Chronic back pain (Chronic) Chronic diastolic heart failure (Chronic) COPD (chronic obstructive pulmonary disease) (Chronic) Coronary artery disease (Chronic) Dermatitis (Chronic) Diabetes mellitus (Chronic) Dysphagia, unspecified (Chronic) Dyspnea (Chronic) Edema (Chronic) Elevated blood pressure reading (Resolved) Encounter for long-term (current) use of medications (Resolved) Encounter for monitoring Coumadin therapy (Resolved) Falls frequently (Acute) Fatigue (Chronic) GERD (gastroesophageal reflux disease) (Chronic) Hip pain (Chronic) History of echocardiogram (Inactive 04/07/16) Hx pulmonary embolism (Chronic) Hyperlipidemia (Chronic) Hypertension (Chronic) Hypothyroidism (Chronic) Impairment of balance (Chronic) Insomnia (Chronic) Knee pain (Chronic) Left lumbar radiculopathy (Chronic) penitentiary (current) use of anticoagulants (Chronic) Memory loss (Chronic) Monoclonal paraproteinemia (Chronic) Chronically monitored by PCP for anemia. Night sweats (Inactive) Pulmonary hypertension (Chronic) Reduced mobility (Chronic) Renal failure (Chronic) Simple chronic anemia (Chronic) Sinus bradycardia (Chronic) Thyromegaly (Chronic) TIA (transient ischemic attack) (Chronic) Tinnitus (Chronic) Urinary incontinence (Chronic) Weight loss (Chronic) Surgical History H/O heart artery stent (Chronic) x2 post bypass History of (Chronic) History of carpal tunnel release (Chronic) History of carpal tunnel repair (Chronic) History of cholecystectomy (Chronic) History of colon surgery (Chronic) History of hernia repair (Chronic) History of open heart surgery (Chronic) 2009 Status post total shoulder arthroplasty (Chronic) Family History Unknown Heart disease Diabetes Asthma Father Skin cancer Social History (Updated 02/07/20 @ 17:04 by Sanjay Louis MD) marital status: single physical activity: none smoking status: Never smoker alcohol intake frequency: does not drink seatbelt use: sometimes additional history: DNR as discussed today 02/07/20 MEDS/ALLERGIES Home Medications and Allergies Home Medications Medication Instructions Recorded Confirmed Type diphenoxylate-atropine 2.5 1 tab PO BID PRN 04/03/19 02/07/20 History mg-0.025 mg tablet ferrous sulfate 325 mg (65 mg 325 mg PO QDAY 05/02/19 02/07/20 History iron) tablet blood sugar diagnostic #50 each 05/17/19 02/07/20 Rx ondansetron 4 mg SL Q4-6HP PRN #14 tab 06/05/19 02/07/20 Rx pantoprazole 40 mg tablet,delayed 40 mg PO QDAY #90 tab 07/12/19 02/07/20 Rx release levothyroxine 50 mcg capsule 50 mcg PO QDAY #90 cap 08/14/19 02/07/20 Rx nitroglycerin 0.4 mg sublingual 0.4 mg SUBLINGUAL PRN PRN #25 tab 09/27/19 02/07/20 Rx tablet colchicine 0.6 mg tablet See Rx Instructions .ROUTE 12/14/19 02/07/20 Rx .COMPLEX #30 tab warfarin 3 mg tablet See Rx Instructions .ROUTE 12/14/19 02/07/20 Rx .COMPLEX #30 tab buspirone 5 mg tablet 5 mg PO BID #180 tab 12/15/19 02/07/20 Rx hydrocodone 10 mg-acetaminophen 1 tab PO Q6H PRN #120 tab 12/21/19 02/07/20 Rx 325 mg tablet nitrofurantoin 100 mg PO ONCE #30 cap 01/04/20 02/07/20 Rx monohydrate/macrocrystals 100 mg capsule atorvastatin 40 mg tablet See Rx Instructions .ROUTE 01/11/20 02/07/20 Rx .COMPLEX #90 tab mirabegron 25 mg tablet,extended 25 mg PO Q24H #30 tab 01/11/20 02/07/20 Rx release 24 hr Adjustable Hospital Bed #1 ea NS 01/18/20 02/07/20 Rx metformin 500 mg tablet,extended 500 mg PO QDAY #30 tab 01/23/20 02/07/20 Rx release 24hr cephalexin 500 mg PO QID #28 cap 02/02/20 02/07/20 Rx baclofen 10 mg tablet 10 mg PO BID PRN #60 tab 02/07/20 02/07/20 Rx polyethylene glycol 3350 [Miralax] 17 g PO PRN PRN 02/07/20 02/07/20 History trazodone 200 mg PO QHS 02/07/20 02/07/20 History Allergies Allergy/AdvReac Type Severity Reaction Status Date / Time Sulfa (Sulfonamide Allergy Mild Rash Verified 02/07/20 10:03 Antibiotics) peanut [PEANUT] Allergy Unknown COUGHING Verified 02/07/20 10:03 Doxepin AdvReac Intermediate elevated BP Verified 02/07/20 10:03 EXAM Constitutional Vitals: Temp Pulse Resp BP Pulse Ox 98.1 F 70 17 102/50 97 02/07/20 10:01 02/07/20 16:00 02/07/20 16:00 02/07/20 15:41 02/07/20 16:00 General appearance: cooperative, no acute distress and thin Head Head exam: Present normal inspection Neck Neck exam: Present normal inspection; Absent lymphadenopathy and tenderness Respiratory Respiratory exam: Present normal respiratory exam and CTAB; Absent rales Cardiovascular Cardiovascular exam: Present normal rate and rhythm GI/Abdominal GI/Abdominal exam: Present normal bowel sounds, soft and tenderness (mild suprapubic and periumbilical tenderness but no guarding) Back Exam Back exam: Present CVA tenderness (R); Absent CVA tenderness (L) Psychiatric Psychiatric exam: Present normal affect and normal mood Skin Skin exam: Present dry and warm DATA Data Completed and Pending Labs on day of discharge: Labs from last 24 hours 02/07/20 02/07/20 02/07/20 12:13 12:13 11:03 WBC RBC Hgb Hct POC Hct MCV MCH MCHC RDW Plt Count MPV Gran % Lymph % (Auto) [place] % (Auto) Eos % (Auto) Baso % (Auto) Gran # Lymph # (Auto) [place] # (Auto) Eos # (Auto) Baso # (Auto) POC PT 57.7 H POC INR 5.2 H VBG Lactic Acid POC Sodium Sodium POC Potassium Potassium POC Chloride Chloride Carbon Dioxide POC Total CO2 Anion Gap POC BUN BUN Creatinine POC Creatinine GFR Calculation Glucose POC Glucose Calcium POC WB Ioniz Calcium Phosphorus 4.7 H Magnesium 1.2 L Total Bilirubin AST ALT Alkaline Phosphatase Troponin T 0.08 H* Total Protein Albumin Globulin Albumin/Globulin Ratio Procalcitonin Urine Color Urine Appearance Urine pH Ur Specific [place] Urine Protein Urine Glucose (UA) Urine Ketones Urine Occult Blood Urine Nitrate Urine Bilirubin Urine Urobilinogen Ur Leukocyte Esterase Urine RBC Urine WBC Ur Squamous Epith Cells Urine Bacteria Urine Mucus Ur Culture Indicated? 02/07/20 02/07/20 02/07/20 10:46 10:20 10:10 WBC RBC Hgb Hct POC Hct 26.0 L MCV MCH MCHC RDW Plt Count MPV Gran % Lymph % (Auto) [place] % (Auto) Eos % (Auto) Baso % (Auto) Gran # Lymph # (Auto) [place] # (Auto) Eos # (Auto) Baso # (Auto) POC PT POC INR VBG Lactic Acid POC Sodium 133 Sodium POC Potassium 5.8 H Potassium POC Chloride 105 Chloride Carbon Dioxide POC Total CO2 18 L Anion Gap POC BUN 92 H BUN Creatinine POC Creatinine 2.6 H GFR Calculation Glucose POC Glucose 119 H Calcium POC WB Ioniz Calcium 1.23 Phosphorus Magnesium Total Bilirubin AST ALT Alkaline Phosphatase Troponin T Total Protein Albumin Globulin Albumin/Globulin Ratio Procalcitonin 0.19 Urine Color Yellow Urine Appearance Cloudy Urine pH 5.0 Ur Specific [place] 1.014 Urine Protein Neg Urine Glucose (UA) Negative Urine Ketones Neg Urine Occult Blood 0.03 A Urine Nitrate Neg Urine Bilirubin Neg Urine Urobilinogen Neg Ur Leukocyte Esterase 250 A Urine RBC 4 H Urine WBC > 182 H Ur Squamous Epith Cells 4 Urine Bacteria Few A Urine Mucus Few Ur Culture Indicated? Yes 02/07/20 02/07/20 02/07/20 10:10 10:10 10:10 WBC RBC Hgb Hct POC Hct MCV MCH MCHC RDW Plt Count MPV Gran % Lymph % (Auto) [place] % (Auto) Eos % (Auto) Baso % (Auto) Gran # Lymph # (Auto) [place] # (Auto) Eos # (Auto) Baso # (Auto) POC PT POC INR VBG Lactic Acid 0.8 POC Sodium Sodium 131 L POC Potassium Potassium 5.8 H POC Chloride Chloride 102 Carbon Dioxide 14 L POC Total CO2 Anion Gap 15.0 POC BUN BUN 84 H Creatinine 2.7 H POC Creatinine GFR Calculation 16 Glucose 123 H POC Glucose Calcium 8.2 L POC WB Ioniz Calcium Phosphorus Magnesium Total Bilirubin 0.2 AST 13 ALT 9 Alkaline Phosphatase 56 Troponin T 0.10 H* Total Protein 6.3 Albumin 3.1 L Globulin 3.2 Albumin/Globulin Ratio 1.0 Procalcitonin Urine Color Urine Appearance Urine pH Ur Specific [place] Urine Protein Urine Glucose (UA) Urine Ketones Urine Occult Blood Urine Nitrate Urine Bilirubin Urine Urobilinogen Ur Leukocyte Esterase Urine RBC Urine WBC Ur Squamous Epith Cells Urine Bacteria Urine Mucus Ur Culture Indicated? 02/07/20 10:10 WBC 7.8 RBC 2.94 L Hgb 9.4 L Hct 29.6 L POC Hct MCV 100.7 H MCH 32.0 MCHC 31.8 RDW 12.6 Plt Count 180 MPV 10.6 H Gran % 69.7 Lymph % (Auto) 18.7 [place] % (Auto) 9.1 Eos % (Auto) 2.4 Baso % (Auto) 0.1 Gran # 5.43 Lymph # (Auto) 1.46 L [place] # (Auto) 0.71 Eos # (Auto) 0.19 Baso # (Auto) 0.01 POC PT POC INR VBG Lactic Acid POC Sodium Sodium POC Potassium Potassium POC Chloride Chloride Carbon Dioxide POC Total CO2 Anion Gap POC BUN BUN Creatinine POC Creatinine GFR Calculation Glucose POC Glucose Calcium POC WB Ioniz Calcium Phosphorus Magnesium Total Bilirubin AST ALT Alkaline Phosphatase Troponin T Total Protein Albumin Globulin Albumin/Globulin Ratio Procalcitonin Urine Color Urine Appearance Urine pH Ur Specific [place] Urine Protein Urine Glucose (UA) Urine Ketones Urine Occult Blood Urine Nitrate Urine Bilirubin Urine Urobilinogen Ur Leukocyte Esterase Urine RBC Urine WBC Ur Squamous Epith Cells Urine Bacteria Urine Mucus Ur Culture Indicated? A/P Assessment and plan (1) Hyperkalemia, diminished renal excretion: Status: Acute Comment: appears dehydrated and UTI with urine retention on myrbetriq and metformin. Hold renal toxic and sensitve medications (2) Metabolic acidosis: Status: Acute Comment: started on low dose bicarb by undercoater. continue fluid hydration. stop metformin but not have lactic acidosis (3) Hyponatremia with decreased serum osmolality: Status: Acute Comment: LR and follow (4) Acute kidney injury: Status: Acute Comment: as above (5) Acute UTI: Status: Acute Comment: cover with zosyn renal dosed for now but appears to be a urine retention failure rather than failed keflex based on new ua (6) BMI 24.0-24.9, adult: Status: Chronic Comment: mod protein calorie malnutrition. 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
[2020-02-07] MEDS ORDERED: ONDANSETRON 4 MG ODT TABLET SL PRN (16:24)
[2020-02-07] MEDS ORDERED: SODIUM BICARBONATE VIAL 150 MEQ in DEXTROSE 5% IN WATER 850 ML IV SCH (16:30)
[2020-02-07] MEDS ORDERED: NITROGLYCERIN 0.4 MG TAB.SUBL SL PRN (16:35)
[2020-02-07] MEDS: INSULIN LISPRO 1 UNIT/0.01 ML UNIT SQ SCH ×2 (16:53→20:39)
[2020-02-07] MEDS: traZODone HCL 50 MG TABLET PO SCH (20:38)
[2020-02-07] MEDS: busPIRone 5 MG TABLET PO SCH (20:38)
[2020-02-07] MEDS: ATORVASTATIN 40 MG TABLET PO SCH (20:39)
[2020-02-07] MEDS: DOCUSATE SODIUM 100 MG CAPSULE PO SCH (20:39)
[2020-02-07] MEDS: 0.9 % SODIUM CHLORIDE 10 ML SYRINGE IV SCH (20:39)
[2020-02-07] MEDS: SENNOSIDES 1 TABLET PO SCH (20:39)
[2020-02-07] MEDS ORDERED: HEPARIN 5,000 UNIT/ML VIAL SQ SCH (21:00)
[2020-02-07] MEDS: PIPERACILLIN SODIUM/TAZOBACTAM 2.25 GM in DEXTROSE 5% IN WATER 50 ML IV SCH (22:34)
[2020-02-08] MEDS: PIPERACILLIN SODIUM/TAZOBACTAM 2.25 GM in DEXTROSE 5% IN WATER 50 ML IV SCH (05:36)
[2020-02-08] MEDS: 0.9 % SODIUM CHLORIDE 10 ML SYRINGE IV SCH ×3 (05:37→22:15)
[2020-02-08 06:49] LABS: Basophils # (Auto) 0.01 K/mcL (0.00-0.30); Basophils % (Auto) 0.2 % (0.0-2.0); Eosinophils # (Auto) 0.21 K/mcL (0.00-0.70); Eosinophils % (Auto) 3.9 % (0.0-7.0); Hematocrit 25.5 % (34.1-44.9); Hemoglobin 8.2 g/dL (11.2-15.7); Lymphocytes # (Auto) 1.11 K/mcL (1.50-4.80); Lymphocytes % (Auto) 20.5 % (15.5-49.0); Mean Cell Volume 97.7 fL (80.0-100.0); Mean Corpuscular HGB Conc 32.2 g/dL (31.0-36.0); Mean Platelet Volume 10.8 fL (7.4-10.4); Monocytes # (Auto) 0.51 K/mcL (0.10-0.90); Monocytes % (Auto) 9.4 % (1.0-12.0); Platelet Count 181 K/mcL (140-440); RBC 2.61 M/mcL (3.59-5.38); Red Cell Distribution Width 12.6 % (11.5-14.5); WBC 5.4 K/mcL (4.50-11.00)
[2020-02-08 07:12] LABS: Blood Urea Nitrogen 71 mg/dl (8-23); Calcium 7.6 mg/dl (8.6-10.4); Chloride 105 mmol/L (96-108); Glucose 117 mg/dL (70-105)
[2020-02-08 07:15] LABS: Carbon Dioxide 18 mmol/L (22-30); Glomerular Filtration Rate 25
[2020-02-08 07:21] LABS: INR 5.7 (0.9-1.1); Prothrombin Time 52.1 sec (11.9-14.5)
[2020-02-08] MEDS: FERROUS SULFATE 325 MG TABLET PO SCH (07:44)
[2020-02-08] MEDS: PANTOPRAZOLE 40 MG TABLET PO SCH (07:44)
[2020-02-08] MEDS: LEVOTHYROXINE 50 MCG TABLET PO SCH (07:44)
[2020-02-08] MEDS: INSULIN LISPRO 1 UNIT/0.01 ML UNIT SQ SCH ×4 (07:46→21:36)
--- NOTE | 2020-02-08 08:12 | Nephrology Progress Note ---
SUBJECTIVE Subjective Patient information: Note initiated : 02/08/20 at 8:11 am Patient: Cecy Mcclellan 79 y/o F admitted on 02/07/20 for UTI, weakness, unable to ambulate. Chief Complaint: Weakness Pertinent ROS: Mental status improved Anorexia and poor oral intake of fluids and food Weakness Buchanan catheter No edema Constitutional Vitals: Vital Signs Temp Pulse Resp BP Pulse Ox 97.8 F 71 18 114/53 95 02/08/20 04:01 02/08/20 05:06 02/07/20 17:57 02/08/20 04:01 02/08/20 05:06 Period Temp Pulse Resp BP Sys/Mcghee Pulse Ox Last 24 Hr 97.8 F-98.1 F 55-99 12-49 70-121/38-60 94-99 Intake and Output 02/07/20 02/08/20 02/08/20 21:59 05:59 13:59 Intake Total 550 50 Output Total 950 Balance 550 -900 Weight 124 lb Intake & Output: Intake & Output 02/07/20 02/08/20 02/08/20 21:59 05:59 13:59 Intake Total 550 50 Output Total 950 Balance 550 -900 Weight 124 lb Intake: IV 550 50 Sodium Chloride 0.9% 500 ml @ 500 Wide Open IV BOLUS ONE Rx#: [id number] Zosyn 2.25 gm In Dextrose 5% in 50 Water 50 ml @ 100 mls/hr IV Q8H SVETA Rx#:[id number] Zosyn 3.375 gm In Dextrose 5% 50 in Water 50 ml @ 100 mls/hr IV ONCE ONE Rx#:[id number] Output: Urine Catheter Amount 950 Other: Urine Appearance Cloudy Cloudy Sediment Fem Cath Cloudy Sediment Urine Color Straw Pale Fem Cath Straw # Bowel Movements 1 General appearance: cooperative and no acute distress Head Head exam: Present normal inspection Eye Eye exam: Present normal appearance ENT ENT exam: Present mucous membranes moist Respiratory Respiratory exam: Absent respiratory distress Cardiovascular Cardiovascular exam: Present normal rate and rhythm GI/Abdominal GI/Abdominal exam: Present soft; Absent tenderness Extremities Exam Extremities exam: Absent joint swelling and pedal edema Neurological Exam Neurological exam: Present alert and oriented X3 Psychiatric Psychiatric exam: Present normal affect and normal mood Skin Skin exam: Present warm; Absent rash A/P Assessment and plan (1) Hyperkalemia, diminished renal excretion: Status: Resolved (2) Metabolic acidosis: Status: Acute (3) Hyponatremia with decreased serum osmolality: Status: Resolved (4) Acute kidney injury: Assessment and plan: Cecy Mcclellan is a 79-year-old female presented to ED on 02/07/20 by ambulance and accompanied by her caregiver and son for worsening weakness. She was seen in ED on 02/02/20 and diagnosed with UTI. Cephalexin was added to Macrodantin which she takes chronically. Culture was negative. In ED, her work up was significant for hypotension, acute kidney injury with hyperkalemia, high anion gap metabolic acidosis and hyponatremia. Acute kidney injury with initial hyperkalemia, high anion gap metabolic acidosis and hyponatremia, associated with Lisinopril, Spironolactone and Metformin, present on arrival. Intravascular volume depletion was suspected and IV fluid resuscitation is being given. Work up: Urinalysis on 02/07/20: Yellow, Cloudy, pH 5.0, SG 1.014, protein negative, occult blood 0.03, leukocyte esterase 250, urine WBC >182. CT Chest, Abdomen, Pelvis wo contrast on 02/07/20: Suboptimal evaluation due to lack of intravenous contrast material and patient motion. No significant pulmonary parenchymal and melanotic. No evidence for significant pneumonia. No hydronephrosis or hydroureter. Progress: Serum creatinine decreased from 2.7 to 1.9 in the past 24 hours. Urine output: 950 ml reported in the past 24 hours. Metabolic acidosis, improved. Hyponatremia, resolved. Hyperkalemia, resolved. No fluid overload. Recommendations/Plan: Sodium Bicarbonate 150 mEq in 1L D5W at 50 ml/hour for metabolic acidosis will be continued. Magnesium will be checked and replaced if needed. Anticipate no acute hemodialysis need. Avoid NSAIDs, nephrotoxic medications and IV contrast. Monitor BMP and urine output. Status: Acute Time Spent With Patient Time: Total time spent is greater than 50% in coordination of care (as documented) at patient's floor/unit and/or counseling patient:
[2020-02-08] MEDS ORDERED: MAGNESIUM SULFATE 8.12 MEQ/2 ML VIAL IV ONE (08:48)
[2020-02-08] MEDS ORDERED: COLCHICINE 0.6 MG TABLET PO SCH (09:00)
[2020-02-08] MEDS ORDERED: MAGNESIUM SULFATE 2 GM/50 ML BAG IV ONE (10:00)
[2020-02-08] MEDS: DOCUSATE SODIUM 100 MG CAPSULE PO SCH ×2 (10:11→21:37)
[2020-02-08] MEDS: busPIRone 5 MG TABLET PO SCH ×2 (10:40→21:26)
[2020-02-08] MEDS: SODIUM BICARBONATE VIAL 150 MEQ in DEXTROSE 5% IN WATER 850 ML IV SCH ×2 (13:41→20:15)
--- NOTE | 2020-02-08 14:06 | Internal Med Progress Note ---
SUBJECTIVE Subjective Patient information: Note initiated : 02/08/20 at 1:55 pm Service Date, if different from initiated Date: [] Patient: Cecy Mcclellan a 79 y/o F admitted on 02/07/20 for UTI, weakness, unable to ambulate. Chief Complaint: [admitted with ARF complicated by dehydration, metformin, diarrhea, UTI. Pt states is feeling better overall but 2 bm yest and 3 loose ones today. not bloody. Pt has had rash to sulfa before. She is not sure if she has problem with pcn with rash but nothing more severe previously. Pt has been on bicarb drip since admission and renal function improving. uo. improved oxygen and respiratory status without complaint.] Constitutional Vitals: Vital Signs Temp Pulse Resp BP Pulse Ox 98.6 F 59 L 18 103/45 96 02/08/20 08:01 02/08/20 12:01 02/07/20 17:57 02/08/20 12:01 02/08/20 12:01 Period Temp Pulse Resp BP Sys/Mcghee Pulse Ox Last 24 Hr 97.8 F-98.6 F 55-99 - 70-119/40-57 94-99 Intake and Output 02/07/20 02/08/20 02/08/20 21:59 05:59 13:59 Intake Total 550 50 150 Output Total 950 Balance 550 -900 150 Weight 56.245 kg Intake & Output: Intake & Output 02/07/20 02/08/20 02/08/20 21:59 05:59 13:59 Intake Total 550 50 150 Output Total 950 Balance 550 -900 150 Weight 56.245 kg Intake: IV 550 50 50 Sodium Chloride 0.9% 500 ml @ 500 Wide Open IV [facility] Rx#: [id number] Zosyn 2.25 gm In Dextrose 5% in 50 50 Water 50 ml @ 100 mls/hr IV Q8H [facility] Rx#:[id number] Zosyn 3.375 gm In Dextrose 5% 50 in Water 50 ml @ 100 mls/hr IV ONCE ONE Rx#:[id number] Oral 100 Output: Urine Catheter Amount 950 Other: Meal Breakfast Percent of Meal Consumed Refused Urine Appearance Cloudy Cloudy Cloudy Sediment Sediment Fem Cath Cloudy Sediment Urine Color Straw Pale Pale Fem Cath Straw Urine Odor Normal Stool Size Large Stool Color Green Stool Consistency Liquid Watery # Bowel Movements 1 2 Exam: GEN WDWN WF NAD MS severe kyphosis Lungs CTA bilat no rales or wheezes Abd soft NT no suprapubic tenderness Back mild left flank tenderness Calves no edema ment alert and oriented. OBJ DATA Labs CBC & Chem 7: 02/08/20 05:00 02/08/20 05:00 Labs: Abnormal Lab Results 02/08/20 02/08/20 02/08/20 05:06 05:00 05:00 RBC Hgb Hct POC Hct MCV MPV Lymph # (Auto) POC PT PT 52.1 H POC INR INR 5.7 H* Sodium POC Potassium Potassium Carbon Dioxide 18 L POC Total CO2 POC BUN BUN 71 H Creatinine 1.9 H POC Creatinine Glucose 117 H POC Glucose Calcium 7.6 L Phosphorus Magnesium 1.2 L Troponin T Albumin Urine Occult Blood Ur Leukocyte Esterase Urine RBC Urine WBC Urine Bacteria 02/08/20 02/07/20 02/07/20 05:00 12:13 12:13 RBC 2.61 L Hgb 8.2 L Hct 25.5 L POC Hct MCV MPV 10.8 H Lymph # (Auto) 1.11 L POC PT PT POC INR INR Sodium POC Potassium Potassium Carbon Dioxide POC Total CO2 POC BUN BUN Creatinine POC Creatinine Glucose POC Glucose Calcium Phosphorus 4.7 H Magnesium 1.2 L Troponin T 0.08 H* Albumin Urine Occult Blood Ur Leukocyte Esterase Urine RBC Urine WBC Urine Bacteria 02/07/20 02/07/20 02/07/20 11:03 10:46 10:20 RBC Hgb Hct POC Hct 26.0 L MCV MPV Lymph # (Auto) POC PT 57.7 H PT POC INR 5.2 H INR Sodium POC Potassium 5.8 H Potassium Carbon Dioxide POC Total CO2 18 L POC BUN 92 H BUN Creatinine POC Creatinine 2.6 H Glucose POC Glucose 119 H Calcium Phosphorus Magnesium Troponin T Albumin Urine Occult Blood 0.03 A Ur Leukocyte Esterase 250 A Urine RBC 4 H Urine WBC > 182 H Urine Bacteria Few A 02/07/20 02/07/20 02/07/20 10:10 10:10 10:10 RBC 2.94 L Hgb 9.4 L Hct 29.6 L POC Hct MCV 100.7 H MPV 10.6 H Lymph # (Auto) 1.46 L POC PT PT POC INR INR Sodium 131 L POC Potassium Potassium 5.8 H Carbon Dioxide 14 L POC Total CO2 POC BUN BUN 84 H Creatinine 2.7 H POC Creatinine Glucose 123 H POC Glucose Calcium 8.2 L Phosphorus Magnesium Troponin T 0.10 H* Albumin 3.1 L Urine Occult Blood Ur Leukocyte Esterase Urine RBC Urine WBC Urine Bacteria Meds: Medications Acetaminophen (Tylenol) 650 mg PO Q6HP PRN; Protocol PRN Reason: Per Pain Protocol/Fever > 101 Last Admin: 02/08/20 10:53 Dose: 650 mg Documented by: Hydrocodone Bitart/Acetaminophen ([place] 10/325mg) 1 tab PO Q6HP PRN; Protocol PRN Reason: Pain Atorvastatin Calcium (Lipitor) 40 mg PO [facility] Last Admin: 02/07/20 20:39 Dose: 40 mg Documented by: Buspirone HCl (Buspar) 5 mg PO BID [facility] Last Admin: 02/08/20 10:40 Dose: 5 mg Documented by: Ceftriaxone Sodium (Rocephin) 1 gm IV DAILY [facility]; Protocol Dextrose (Dextrose 50%) 0 ml IV UD PRN PRN Reason: Hypoglycemia Diagnostic Test (Pha) (Accu-Chek) 1 each FS [facility] Last Admin: 02/08/20 13:41 Dose: Not Given Documented by: Diphenoxylate HCl/Atropine (Lomotil) 1 tab PO BIDP PRN PRN Reason: Diarrhea Docusate Sodium (Colace) 100 mg PO BID [facility] Last Admin: 02/08/20 10:11 Dose: Not Given Documented by: Ferrous Sulfate (Ferrous Sulfate) 325 mg PO [facility] Last Admin: 02/08/20 07:44 Dose: 325 mg Documented by: Glucose (Insta-Glucose) 15 gm PO PRN PRN PRN Reason: Hypoglycemia Sodium Bicarbonate 150 meq/ (Dextrose) 1,000 mls @ 50 mls/hr IV Q20H [facility] Last Admin: 02/08/20 13:41 Dose: Not Given Documented by: Insulin Human Lispro (Humalog) 0 unit SQ [facility]; Protocol Last Admin: 02/08/20 13:41 Dose: Not Given Documented by: Levothyroxine Sodium (Synthroid) 50 mcg PO [facility] Last Admin: 02/08/20 07:44 Dose: 50 mcg Documented by: Nitroglycerin (Nitrostat) 0.4 mg SL Q5M PRN PRN Reason: Chest Pain Ondansetron HCl (Zofran Odt) 4 mg SL Q4-6HP PRN PRN Reason: Nausea And Vomiting Ondansetron HCl (Zofran) 4 mg IV Q6HP PRN PRN Reason: Nausea And Vomiting Pantoprazole Sodium (Protonix) 40 mg PO ACB [facility] Last Admin: 02/08/20 07:44 Dose: 40 mg Documented by: Senna (Senokot) 2 tab PO HS [facility] Last Admin: 02/07/20 20:39 Dose: 2 tab Documented by: Sodium Chloride (Saline Flush) 10 ml IV Q8 [facility] Last Admin: 02/08/20 13:42 Dose: Not Given Documented by: Trazodone HCl (Desyrel) 200 mg PO QHS [facility] Last Admin: 02/07/20 20:38 Dose: 200 mg Documented by: Warfarin Sodium (Coumadin Per Pharmacy) 1 order PO UD [facility] A/P Assessment and plan (1) Acute kidney injury: Status: Acute Comment: due to diarrhea, dehydration metformin, UTI and left pyelonephritis with urinary retention. improved with hydration and bicarbonate. (2) Acute pyelonephritis: Status: Acute Comment: due to no growth in urine change to rocephin. stop zosyn (3) Hyperkalemia, diminished renal excretion: Status: Resolved Comment: improved and resolved. (4) Diarrhea: Status: Acute Comment: will monitor off zosyn. start probiotic. if persist will check Cdiff. less likely infectious as normal WBC Qualifiers: Diarrhea type: unspecified type Qualified Code(s): R19.7 - Diarrhea, unspecified (5) Bladder retention of urine: Status: Acute Comment: stop myrbetriq. mendes for another day then removed tomorrow. Time Spent With Patient Time: Total time spent is greater than 50% in coordination of care (as documented) at patient's floor/unit and/or counseling patient: 35 mins Total time spent with greater than 50% in coordination of care (as documented) at patient's floor/unit and/or counseling patient:: Greater than 35 minutes QUALITY VTE Deep Vein Thrombosis/Pulmonary Embolism Present on Admission: No
[2020-02-08] MEDS: cefTRIAXone 1 GM VIAL IV SCH (14:32)
--- NOTE | 2020-02-08 16:59 | XRay Report ---
INDICATION: Obtundation TECHNIQUE: Very limited barium swallow. We were unable to position this patient in an upright position. She was only able to take small swallows of barium. 29 seconds fluoroscopy utilized COMPARISON: None. FINDINGS: There is no obstruction. There are multiple tertiary contractions. No detectable esophageal mass or stricture. No significant hiatal hernia. Images of the cervical esophagus demonstrated mild aspiration. This did not induce coughing. IMPRESSION: 1. Very Limited evaluation as above 2. Mild aspiration without coughing 3. No detectable esophageal mass or stricture Interpreted and Authenticated by: Seymour Gannon 02/08/20
[2020-02-08] MEDS: traZODone HCL 50 MG TABLET PO SCH (21:25)
[2020-02-08] MEDS: ATORVASTATIN 40 MG TABLET PO SCH (21:26)
[2020-02-08] MEDS: SENNOSIDES 1 TABLET PO SCH (21:37)
[2020-02-09] MEDS: 0.9 % SODIUM CHLORIDE 10 ML SYRINGE IV SCH ×3 (06:09→20:29)
[2020-02-09 06:21] LABS: INR 6.1 (0.9-1.1); Prothrombin Time 54.6 sec (11.9-14.5)
[2020-02-09] MEDS: INSULIN LISPRO 1 UNIT/0.01 ML UNIT SQ SCH ×4 (07:36→20:37)
[2020-02-09] MEDS: PANTOPRAZOLE 40 MG TABLET PO SCH (07:36)
[2020-02-09] MEDS: LEVOTHYROXINE 50 MCG TABLET PO SCH (07:36)
[2020-02-09] MEDS: SODIUM BICARBONATE VIAL 150 MEQ in DEXTROSE 5% IN WATER 850 ML IV SCH (08:30)
--- NOTE | 2020-02-09 08:54 | Nephrology Progress Note ---
SUBJECTIVE Subjective Patient information: Note initiated : 02/09/20 at 8:52 am Patient: Cecy Mcclellan 79 y/o F admitted on 02/07/20 for UTI, weakness, unable to ambulate. Chief Complaint: Weakness Pertinent ROS: Weakness Buchanan catheter Poor appetite and oral intake Constitutional Vitals: Vital Signs Temp Pulse Resp BP Pulse Ox 98.1 F 58 L 18 110/55 89 L 02/09/20 08:00 02/09/20 08:07 02/09/20 07:48 02/09/20 08:00 02/09/20 08:07 Period Temp Pulse Resp BP Sys/Mcghee Pulse Ox Last 24 Hr 98.1 F-99.0 F 55-66 16-18 92-126/45-64 87-96 Intake and Output 02/08/20 02/09/20 02/09/20 21:59 05:59 13:59 Intake Total 200 180 Output Total 940 Balance 200 -760 Weight 136 lb 1.6 oz Intake & Output: Intake & Output 02/08/20 02/09/20 02/09/20 21:59 05:59 13:59 Intake Total 200 180 Output Total 940 Balance 200 -760 Weight 136 lb 1.6 oz Intake: Oral 200 180 Output: Urine Catheter Amount 940 Other: Urine Appearance Cloudy Clear Sediment Fem Cath Cloudy Cloudy Urine Color Pale Bright Yellow Tea Colored Fem Cath Bright Yellow Bright Yellow Urine Odor Normal General appearance: cooperative and no acute distress Head Head exam: Present normal inspection Eye Eye exam: Present normal appearance ENT ENT exam: Present mucous membranes moist Respiratory Respiratory exam: Absent respiratory distress Cardiovascular Cardiovascular exam: Present normal rate and rhythm GI/Abdominal GI/Abdominal exam: Present soft; Absent tenderness Extremities Exam Extremities exam: Absent joint swelling and pedal edema Neurological Exam Neurological exam: Present alert and oriented X3 Psychiatric Psychiatric exam: Present normal affect and normal mood Skin Skin exam: Present warm; Absent rash A/P Assessment and plan (1) Acute kidney injury: Assessment and plan: Cecy Mcclellan is a 79-year-old female presented to ED on 02/07/20 by ambulance and accompanied by her caregiver and son for worsening weakness. She was seen in ED on 02/02/20 and diagnosed with UTI. Cephalexin was added to Macrodantin which she takes chronically. Culture was negative. In ED, her work up was significant for hypotension, acute kidney injury with hyperkalemia, high anion gap metabolic acidosis and hyponatremia. Acute kidney injury with initial hyperkalemia, high anion gap metabolic acidosis and hyponatremia, associated with Lisinopril, Spironolactone and Metformin, present on arrival. Intravascular volume depletion was suspected and IV fluid resuscitation is being given. Work up: Urinalysis on 02/07/20: Yellow, Cloudy, pH 5.0, SG 1.014, protein negative, occult blood 0.03, leukocyte esterase 250, urine WBC >182. CT Chest, Abdomen, Pelvis wo contrast on 02/07/20: Suboptimal evaluation due to lack of intravenous contrast material and patient motion. No significant pulmonary parenchymal and melanotic. No evidence for significant pneumonia. No hydronephrosis or hydroureter. Progress: Serum creatinine decreased from 1.9 to 1.3 in the past 24 hours. Urine output: 940 ml reported in the past 24 hours. Metabolic acidosis, resolved. Hyponatremia, resolved. Hyperkalemia, resolved. Hypomagnesemia, resolved. No fluid overload. Recommendations/Plan: Sodium Bicarbonate 150 mEq in 1L D5W at 50 ml/hour discontinued. Anticipate no acute hemodialysis need. Status: Acute Comment: due to diarrhea, dehydration metformin, UTI and left pyelonephritis with urinary retention. improved with hydration and bicarbonate. Time Spent With Patient Time: Total time spent is greater than 50% in coordination of care (as documented) at patient's floor/unit and/or counseling patient:
[2020-02-09] MEDS: busPIRone 5 MG TABLET PO SCH ×2 (08:55→20:27)
[2020-02-09] MEDS: FERROUS SULFATE 325 MG TABLET PO SCH (08:55)
[2020-02-09] MEDS: cefTRIAXone 1 GM VIAL IV SCH (09:14)
[2020-02-09] MEDS: DOCUSATE SODIUM 100 MG CAPSULE PO SCH (09:15)
[2020-02-09 09:44] LABS: Albumin 2.6 gm/dL (3.2-5.2); Calcium 7.8 mg/dl (8.6-10.4); Chloride 106 mmol/L (96-108); Glucose 116 mg/dL (70-105)
[2020-02-09 09:55] LABS: Blood Urea Nitrogen 51 mg/dl (8-23); Carbon Dioxide 24 mmol/L (22-30); Glomerular Filtration Rate 39; Phosphorous 2.9 mg/dL (2.7-4.5)
--- NOTE | 2020-02-09 16:33 | Internal Med Progress Note ---
SUBJECTIVE Subjective Patient information: Note initiated : 02/09/20 at 4:27 pm Service Date, if different from initiated Date: [] Patient: Cecy Mcclellan a 79 y/o F admitted on 02/07/20 for UTI, weakness, unable to ambulate. Chief Complaint: wants to go home pt says she feels better and will do better at home. Doesnt like the delay in response to call light. Says her caregiver Katarzyna does well for her at home. denies fevers cough, pain. Constitutional Vitals: Vital Signs Temp Pulse Resp BP Pulse Ox 98.4 F 61 16 121/56 97 02/09/20 15:57 02/09/20 15:57 02/09/20 15:57 02/09/20 15:57 02/09/20 15:57 Period Temp Pulse Resp BP Sys/Mcghee Pulse Ox Last 24 Hr 98.1 F-99.0 F 55-66 16-18 92-126/46-74 87-100 Intake and Output 02/09/20 02/09/20 02/09/20 05:59 13:59 21:59 Intake Total 180 780 Output Total 940 Balance -760 780 Gen WDWN WF severe kyphosis no distress Ment alert and oriented x 3 CV RRR Lungs CTA Abd soft NTND Calves no swelling back mild right flank tender left not tendeer Skin warm and dry Intake & Output: Intake & Output 02/09/20 02/09/20 02/09/20 05:59 13:59 21:59 Intake Total 180 780 Output Total 940 Balance -760 780 Intake: IV 780 Sodium Bicarbonate Vial 150 Meq 780 In Dextrose 5% in Water 850 ml @ 50 mls/hr IV Q20H [facility] Rx#: [id number] Oral 180 Output: Urine Catheter Amount 940 Other: Meal Breakfast Percent of Meal Consumed 50% Feeding Ability Assist with Tray Set Up Urine Appearance Clear Fem Cath Cloudy Urine Color Bright Yellow Fem Cath Bright Yellow Stool Size Moderate Stool Color Green Stool Consistency Liquid # of times incontinent of 1 Bowels OBJ DATA Labs CBC & Chem 7: 02/08/20 05:00 02/09/20 08:43 Labs: Abnormal Lab Results 02/09/20 02/09/20 02/08/20 08:43 04:54 05:06 RBC Hgb Hct POC Hct MCV MPV Lymph # (Auto) POC PT PT 54.6 H POC INR INR 6.1 H* Sodium POC Potassium Potassium Carbon Dioxide POC Total CO2 POC BUN BUN 51 H Creatinine 1.3 H POC Creatinine Glucose 116 H POC Glucose Calcium 7.8 L Phosphorus Magnesium 1.2 L Troponin T Albumin 2.6 L Urine Occult Blood Ur Leukocyte Esterase Urine RBC Urine WBC Urine Bacteria 02/08/20 02/08/20 02/08/20 05:00 05:00 05:00 RBC 2.61 L Hgb 8.2 L Hct 25.5 L POC Hct MCV MPV 10.8 H Lymph # (Auto) 1.11 L POC PT PT 52.1 H POC INR INR 5.7 H* Sodium POC Potassium Potassium Carbon Dioxide 18 L POC Total CO2 POC BUN BUN 71 H Creatinine 1.9 H POC Creatinine Glucose 117 H POC Glucose Calcium 7.6 L Phosphorus Magnesium Troponin T Albumin Urine Occult Blood Ur Leukocyte Esterase Urine RBC Urine WBC Urine Bacteria 02/07/20 02/07/20 02/07/20 12:13 12:13 11:03 RBC Hgb Hct POC Hct MCV MPV Lymph # (Auto) POC PT 57.7 H PT POC INR 5.2 H INR Sodium POC Potassium Potassium Carbon Dioxide POC Total CO2 POC BUN BUN Creatinine POC Creatinine Glucose POC Glucose Calcium Phosphorus 4.7 H Magnesium 1.2 L Troponin T 0.08 H* Albumin Urine Occult Blood Ur Leukocyte Esterase Urine RBC Urine WBC Urine Bacteria 02/07/20 02/07/20 02/07/20 10:46 10:20 10:10 RBC Hgb Hct POC Hct 26.0 L MCV MPV Lymph # (Auto) POC PT PT POC INR INR Sodium POC Potassium 5.8 H Potassium Carbon Dioxide POC Total CO2 18 L POC BUN 92 H BUN Creatinine POC Creatinine 2.6 H Glucose POC Glucose 119 H Calcium Phosphorus Magnesium Troponin T 0.10 H* Albumin Urine Occult Blood 0.03 A Ur Leukocyte Esterase 250 A Urine RBC 4 H Urine WBC > 182 H Urine Bacteria Few A 02/07/20 02/07/20 10:10 10:10 RBC 2.94 L Hgb 9.4 L Hct 29.6 L POC Hct MCV 100.7 H MPV 10.6 H Lymph # (Auto) 1.46 L POC PT PT POC INR INR Sodium 131 L POC Potassium Potassium 5.8 H Carbon Dioxide 14 L POC Total CO2 POC BUN BUN 84 H Creatinine 2.7 H POC Creatinine Glucose 123 H POC Glucose Calcium 8.2 L Phosphorus Magnesium Troponin T Albumin 3.1 L Urine Occult Blood Ur Leukocyte Esterase Urine RBC Urine WBC Urine Bacteria Meds: Medications Acetaminophen (Tylenol) 650 mg PO Q6HP PRN; Protocol PRN Reason: Per Pain Protocol/Fever > 101 Last Admin: 02/08/20 10:53 Dose: 650 mg Documented by: Hydrocodone Bitart/Acetaminophen ([place] 10/325mg) 1 tab PO Q6HP PRN; Protocol PRN Reason: Pain Atorvastatin Calcium (Lipitor) 40 mg PO [facility] Last Admin: 02/08/20 21:26 Dose: 40 mg Documented by: Buspirone HCl (Buspar) 5 mg PO BID [facility] Last Admin: 02/09/20 08:55 Dose: 5 mg Documented by: Ceftriaxone Sodium (Rocephin) 1 gm IV DAILY [facility]; Protocol Last Admin: 02/09/20 09:14 Dose: 1 gm Documented by: Dextrose (Dextrose 50%) 0 ml IV UD PRN PRN Reason: Hypoglycemia Diagnostic Test (Pha) (Accu-Chek) 1 each FS [facility] Last Admin: 02/09/20 11:47 Dose: 1 each Documented by: Diphenoxylate HCl/Atropine (Lomotil) 1 tab PO BIDP PRN PRN Reason: Diarrhea Docusate Sodium (Colace) 100 mg PO BID [facility] Last Admin: 02/09/20 09:15 Dose: Not Given Documented by: Ferrous Sulfate (Ferrous Sulfate) 325 mg PO [facility] Last Admin: 02/09/20 08:55 Dose: 325 mg Documented by: Glucose (Insta-Glucose) 15 gm PO PRN PRN PRN Reason: Hypoglycemia Insulin Human Lispro (Humalog) 0 unit SQ [facility]; Protocol Last Admin: 02/09/20 11:48 Dose: Not Given Documented by: Levothyroxine Sodium (Synthroid) 50 mcg PO [facility] Last Admin: 02/09/20 07:36 Dose: 50 mcg Documented by: Nitroglycerin (Nitrostat) 0.4 mg SL Q5M PRN PRN Reason: Chest Pain Ondansetron HCl (Zofran Odt) 4 mg SL Q4-6HP PRN PRN Reason: Nausea And Vomiting Ondansetron HCl (Zofran) 4 mg IV Q6HP PRN PRN Reason: Nausea And Vomiting Last Admin: 02/08/20 14:24 Dose: 4 mg Documented by: Pantoprazole Sodium (Protonix) 40 mg PO ACB [facility] Last Admin: 02/09/20 07:36 Dose: 40 mg Documented by: Fernando (Senokot) 2 tab PO HS [facility] Last Admin: 02/08/20 21:37 Dose: Not Given Documented by: Sodium Chloride (Saline Flush) 10 ml IV Q8 [facility] Last Admin: 02/09/20 14:39 Dose: 10 ml Documented by: Trazodone HCl (Desyrel) 200 mg PO QHS [facility] Last Admin: 02/08/20 21:25 Dose: 200 mg Documented by: Warfarin Sodium (Coumadin Per Pharmacy) 1 order PO UD [facility] A/P Assessment and plan (1) Bladder retention of urine: Status: Acute Comment: stop myrbetriq. mendes for another day then removed tomorrow. (2) Diarrhea: Status: Acute Comment: will monitor off zosyn. diarrhea has resolved. Qualifiers: Diarrhea type: unspecified type Qualified Code(s): R19.7 - Diarrhea, unspecified (3) Hyperkalemia, diminished renal excretion: Status: Resolved Comment: improved and resolved. (4) Metabolic acidosis: Status: Acute Comment: resolved (5) Hyponatremia with decreased serum osmolality: Status: Resolved Comment: reolved (6) Acute kidney injury: Status: Acute Comment: due to diarrhea, dehydration metformin, UTI and left pyelonephritis with urinary retention. improved with hydration and bicarbonate. much improved gfr up to 39 cr at 1.3 will not resume metformin now or ever bmp in morning and likely home. Stop maintenance ivf Time Spent With Patient Time: Total time spent is greater than 50% in coordination of care (as documented) at patient's floor/unit and/or counseling patient: QUALITY VTE Deep Vein Thrombosis/Pulmonary Embolism Present on Admission: No
[2020-02-09] MEDS: traZODone HCL 50 MG TABLET PO SCH (20:26)
[2020-02-09] MEDS: ATORVASTATIN 40 MG TABLET PO SCH (20:27)
[2020-02-10 06:53] LABS: Hemoglobin 8.8 g/dL (11.2-15.7); Mean Cell Volume 95.7 fL (80.0-100.0); Mean Corpuscular HGB Conc 32.6 g/dL (31.0-36.0); Mean Platelet Volume 10.7 fL (7.4-10.4); Platelet Count 209 K/mcL (140-440); RBC 2.82 M/mcL (3.59-5.38); Red Cell Distribution Width 12.4 % (11.5-14.5); WBC 6.4 K/mcL (4.50-11.00)
[2020-02-10 07:08] LABS: Calcium 8.4 mg/dl (8.6-10.4); Carbon Dioxide 25 mmol/L (22-30); Chloride 104 mmol/L (96-108); Glomerular Filtration Rate 48; Glucose 122 mg/dL (70-105)
[2020-02-10 07:10] LABS: Blood Urea Nitrogen 40 mg/dl (8-23)
[2020-02-10 07:18] LABS: INR 2.8 (0.9-1.1); Prothrombin Time 29.7 sec (11.9-14.5)
--- NOTE | 2020-02-10 07:18 | Nephrology Progress Note ---
SUBJECTIVE Subjective Patient information: Note initiated : 02/10/20 at 7:15 am Patient: Cecy Mcclellan 79 y/o F admitted on 02/07/20 for UTI, weakness, unable to ambulate. Chief Complaint: Weakness Pertinent ROS: Weakness Anorexia Constitutional Vitals: Vital Signs Temp Pulse Resp BP Pulse Ox 98.3 F 76 16 134/72 98 02/10/20 04:00 02/09/20 18:01 02/10/20 00:01 02/10/20 04:05 02/10/20 04:05 Period Temp Pulse Resp BP Sys/Mcghee Pulse Ox Last 24 Hr 98.1 F-98.7 F 57-76 16-18 110-143/55-92 89-100 Intake and Output 02/09/20 02/10/20 02/10/20 21:59 05:59 13:59 Intake Total 420 160 Output Total 551 Balance -131 160 Weight 132 lb 11.2 oz Intake & Output: Intake & Output 02/09/20 02/10/20 02/10/20 21:59 05:59 13:59 Intake Total 420 160 Output Total 551 Balance -131 160 Weight 132 lb 11.2 oz Intake: Nourishment/Supplement quantity 240 (ml) Oral 180 160 Output: Urine Catheter Amount 550 # of times incontinent of urine 1 Other: Meal Dinner Percent of Meal Consumed 50% Urine Appearance Sediment Urine Color Dark Yellow Urine Odor Strong Stool Size Moderate Smear Stool Color Green Green Stool Consistency Formed Loose # of times incontinent of 1 Bowels General appearance: cooperative and no acute distress Head Head exam: Present normal inspection Eye Eye exam: Present normal appearance ENT ENT exam: Present mucous membranes moist Respiratory Respiratory exam: Absent respiratory distress Cardiovascular Cardiovascular exam: Present normal rate and rhythm GI/Abdominal GI/Abdominal exam: Present soft; Absent tenderness Extremities Exam Extremities exam: Absent joint swelling and pedal edema Neurological Exam Neurological exam: Present alert and oriented X3 Psychiatric Psychiatric exam: Present normal affect and normal mood Skin Skin exam: Present warm; Absent rash A/P Assessment and plan (1) Acute kidney injury: Assessment and plan: Cecy Mcclellan is a 79-year-old female presented to ED on 02/07/20 by ambulance and accompanied by her caregiver and son for worsening weakness. She was seen in ED on 02/02/20 and diagnosed with UTI. Cephalexin was added to Macrodantin which she takes chronically. Culture was negative. In ED, her work up was significant for hypotension, acute kidney injury with hyperkalemia, high anion gap metabolic acidosis and hyponatremia. Acute kidney injury with initial hyperkalemia, high anion gap metabolic acidosis and hyponatremia, associated with Lisinopril, Spironolactone and Metformin, present on arrival. Intravascular volume depletion was suspected and IV fluid resuscitation is being given. Work up: Urinalysis on 02/07/20: Yellow, Cloudy, pH 5.0, SG 1.014, protein negative, occult blood 0.03, leukocyte esterase 250, urine WBC >182. CT Chest, Abdomen, Pelvis wo contrast on 02/07/20: Suboptimal evaluation due to lack of intravenous contrast material and patient motion. No significant pulmonary parenchymal and melanotic. No evidence for significant pneumonia. No hydronephrosis or hydroureter. Progress: Serum creatinine decreased from 1.3 to 1.1 in the past 24 hours. Urine output: 940 ml reported in the past 24 hours. No fluid overload. Recommendations/Plan: Nephrology will sign off. Metformin, Lisinopril, Spironolactone and NSAIDs not recommended as outpatient due to recurrent dehydration and acute kidney injury episodes. Status: Acute Time Spent With Patient Time: Total time spent is greater than 50% in coordination of care (as documented) at patient's floor/unit and/or counseling patient:
[2020-02-10] MEDS: PANTOPRAZOLE 40 MG TABLET PO SCH (07:30)
[2020-02-10] MEDS: 0.9 % SODIUM CHLORIDE 10 ML SYRINGE IV SCH (07:30)
[2020-02-10] MEDS: LEVOTHYROXINE 50 MCG TABLET PO SCH (07:30)
[2020-02-10 07:45] LABS: Eosinophils % (Manual) 8 % (0-7); Lymphocytes % 17 % (15-49); Monocytes % (Manual) 10 % (1-12); Platelet Estimate NORMAL (NORMAL); RBC Morphology NORMAL (NORMAL); Reactive Lymphocytes 6 % (0-2); Segmented Neutrophils % 59 % (38-78)
[2020-02-10] MEDS: INSULIN LISPRO 1 UNIT/0.01 ML UNIT SQ SCH ×2 (07:47→13:44)
[2020-02-10] MEDS: cefTRIAXone 1 GM VIAL IV SCH (08:45)
[2020-02-10] MEDS: FERROUS SULFATE 325 MG TABLET PO SCH (08:45)
[2020-02-10] MEDS: busPIRone 5 MG TABLET PO SCH (08:46)
--- NOTE | 2020-02-10 08:48 | Discharge Summary ---
Discharge Provider Provider Patient information: Note initiated : 02/10/20 at 8:42 am Service Date, if different from initiated Date: [] Patient: Cecy Mcclellan a 79 y/o F admitted on 02/07/20 for UTI, weakness, unable to ambulate. Chief Complaint: weakness and confusion pt admitted with UTI and found to have moderate urine retention likely related to myrbetriq Date of admission: 02/07/20 16:00 Discharge date: 02/10/20 Primary care physician: Lesvia Joseph Consults: 02/07/20 Consult to Physician [CONS] Stat Comment: Consulting Provider: Sanjay Louis Reason For Exam: Physician to Consult Discharge Meds Discharge Medications Home Medications ferrous sulfate 325 mg (65 mg iron) tablet 325 mg PO QDAY 05/02/19 [History Confirmed 02/07/20 Last Taken Unknown] blood sugar diagnostic #50 each 05/17/19 [Rx Confirmed 02/07/20 Last Taken Unknown] ondansetron 4 mg SL Q4-6HP PRN #14 tab 06/05/19 [Rx Confirmed 02/07/20 Last Taken Unknown] pantoprazole 40 mg tablet,delayed release 40 mg PO QDAY #90 tab 07/12/19 [Rx Confirmed 02/07/20 Last Taken Unknown] levothyroxine 50 mcg capsule 50 mcg PO QDAY #90 cap 08/14/19 [Rx Confirmed 02/07/20 Last Taken Unknown] nitroglycerin 0.4 mg sublingual tablet 0.4 mg SUBLINGUAL PRN PRN #25 tab 09/27/19 [Rx Confirmed 02/07/20 Last Taken Unknown] colchicine 0.6 mg tablet See Rx Instructions .ROUTE .COMPLEX #30 tab 12/14/19 [Rx Confirmed 02/07/20 Last Taken Unknown] warfarin 3 mg tablet See Rx Instructions .ROUTE .COMPLEX #30 tab 12/14/19 [Rx Confirmed 02/07/20 Last Taken Unknown] buspirone 5 mg tablet 5 mg PO BID #180 tab 12/15/19 [Rx Confirmed 02/07/20 Last Taken Unknown] hydrocodone 10 mg-acetaminophen 325 mg tablet 1 tab PO Q6H PRN #120 tab 12/21/19 [Rx Confirmed 02/07/20 Last Taken Unknown] atorvastatin 40 mg tablet See Rx Instructions .ROUTE .COMPLEX #90 tab 01/11/20 [Rx Confirmed 02/07/20 Last Taken Unknown] Adjustable Hospital Bed #1 ea NS 01/18/20 [Rx Confirmed 02/07/20 Last Taken Unknown] cephalexin 500 mg PO QID #28 cap 02/02/20 [Rx Confirmed 02/07/20 Last Taken Unknown] trazodone 200 mg PO QHS 02/07/20 [History Confirmed 02/07/20 Last Taken Unknown] acetaminophen [Tylenol] 650 mg PO Q6HP PRN #0 tab 02/10/20 [Rx Last Taken Unknown] cephalexin [Keflex] 500 mg PO TID #20 cap 02/10/20 [Rx Last Taken Unknown] insulin glargine [Lantus Solostar U-100 Insulin] 10 unit SUB-Q QDAY #3 ml 02/10/20 [Rx Last Taken Unknown] COURSE Hospital Course Hospital course: PT admitted and had normal serum WBC but noted recurring UTI and WBC loaded in urine. she had recent abx for UTI including Keflex and the wbc still high but bacteria cound had decreased. I suspect urine retention is cause of infection. Myrbetriq was stopped and catheter left in 48 hours and now removed. today still showing 450 urine retention despite 2 days mendes and off myrbetriq. will place mendes and leave in for 2 weeks. follow up with urologist for urodynamic studies. Caregiver zaida at bedside quite capable and I think bid straight cath could be an option if fails mendes removal in 2 weeks. Pt had contaminant blood cultures one micrococcus and one staph epi. lab is addressing technique. Pts wbc, normal and no left shift. the procalcitonin is normal pts mentation has been very clear last 2 days and she is ready to go home. of note was some coughing with eating and she has severe kyphosis. There was silent aspiration by ST exam and also by barium swallow. She is on a dysphagia diet. Discharge diagnosis: UTI Secondary discharge diagnosis: urine retention dysphagia kyphosis chronic anticoagulation for cardiac clot NIDDM ADRY no longer a candidate for metformin due to renal insufficiency diarrhea likely due to metformin Pertinent studies/significant findings: barium swallow mild silent aspiration Time Spent with Patient Time attestation: Total time spent providing and/or coordinating discharge services: 40 Time spent: Greater than 30 minutes EXAM Constitutional Vitals: Temp Pulse Resp BP Pulse Ox 97.9 F 76 16 152/61 100 02/10/20 08:02 02/09/20 18:01 02/10/20 00:01 02/10/20 08:02 02/10/20 08:02 Gen WDWN WF NAD mentation alert and oriented x 3 CV RRR Lungs CTA Abd Soft NTND Calves no edema Skin warm and dry Discharge Data Data Completed and Pending Labs on day of discharge: Labs from last 24 hours 02/10/20 02/10/20 02/10/20 04:43 04:43 04:43 WBC 6.4 RBC 2.82 L Hgb 8.8 L Hct 27.0 L MCV 95.7 MCH 31.2 MCHC 32.6 RDW 12.4 Plt Count 209 MPV 10.7 H Total Counted 100 Seg Neutrophils % 59 Band Neutrophils % Not Reportable Lymphocytes % 17 Monocytes % (Manual) 10 Eosinophils % (Manual) 8 H Reactive Lymphocytes 6 H Platelet Estimate Normal RBC Morphology Normal PT INR Sodium 139 Potassium 3.9 Chloride 104 Carbon Dioxide 25 Anion Gap 10.0 BUN 40 H Creatinine 1.1 GFR Calculation 48 Glucose 122 H Calcium 8.4 L Phosphorus Magnesium Albumin Procalcitonin 0.09 02/10/20 02/09/20 04:43 08:43 WBC RBC Hgb Hct MCV MCH MCHC RDW Plt Count MPV Total Counted Seg Neutrophils % Band Neutrophils % Lymphocytes % Monocytes % (Manual) Eosinophils % (Manual) Reactive Lymphocytes Platelet Estimate RBC Morphology PT 29.7 H INR 2.8 H Sodium 139 Potassium 4.0 Chloride 106 Carbon Dioxide 24 Anion Gap 9.0 BUN 51 H Creatinine 1.3 H GFR Calculation 39 Glucose 116 H Calcium 7.8 L Phosphorus 2.9 Magnesium 1.7 Albumin 2.6 L Procalcitonin Preliminary micro results at discharge 02/07/20 10:36 Blood Culture - Preliminary Blood Gram positive cocci 02/07/20 10:46 Blood Culture - Preliminary Blood Gram positive cocci 02/07/20 10:20 Urine Culture - Preliminary Urine - Clean Void Mid-Stream Discharge Plan Patient/Caregiver Discharge Instructions Activity: increase activity as tolerated Diet: Dysphagia Level 5 Minced & Moist Foods Instructions: Acute Urinary Retention in Women (GEN), Chronic Urinary Retention in Women (GEN) Prescriptions: New acetaminophen [Tylenol] 325 mg Tablet 650 mg PO Q6HP PRN (Reason: Per Pain Protocol/Fever > 101) Qty: 0 RF: 0 Lantus Solostar U-100 Insulin 100 unit/mL (3 mL) insulin pen 10 unit SUB-Q QDAY Qty: 3 RF: 2 cephalexin [Keflex] 500 mg capsule 500 mg PO TID Qty: 20 RF: 0 Continued ferrous sulfate [FeroSul] 325 mg (65 mg iron) tablet 325 mg PO QDAY RF: 0 hydrocodone-acetaminophen 10-325 mg tablet 1 tab PO Q6H PRN (Reason: Pain) Qty: 120 RF: 0 (DME) True Metrix Glucose Test Strip strip See Rx Instructions .ROUTE .MEDSUPPLY Qty: 50 RF: 5 pantoprazole 40 mg tablet,delayed release (DR/EC) 40 mg PO QDAY Qty: 90 RF: 4 levothyroxine 50 mcg capsule 50 mcg PO QDAY Qty: 90 RF: 2 nitroglycerin [Nitrostat] 0.4 mg tablet, sublingual 0.4 mg SUBLINGUAL PRN PRN (Reason: chest pain) Qty: 25 RF: 1 colchicine 0.6 mg tablet See Rx Instructions .ROUTE .COMPLEX Qty: 30 RF: 3 warfarin 3 mg tablet See Rx Instructions .ROUTE .COMPLEX Qty: 30 RF: 2 buspirone 5 mg tablet 5 mg PO BID Qty: 180 RF: 1 atorvastatin 40 mg tablet See Rx Instructions .ROUTE .COMPLEX Qty: 90 RF: 0 (DME) Adjustable Hospital Bed Qty: 1 RF: 0 ondansetron 4 MG tablet 4 mg SL Q4-6HP PRN (Reason: nausea or vomiting) Qty: 14 RF: 0 cephalexin 500 MG capsule 500 mg PO QID Qty: 28 RF: 0 trazodone 50 mg Tablet 200 mg PO QHS RF: 0 Discontinued diphenoxylate-atropine [Lomotil] 2.5-0.025 mg tablet 1 tab PO BID PRN (Reason: Diarrhea) RF: 0 Myrbetriq 25 mg tablet extended release 24 hr 25 mg PO Q24H Qty: 30 RF: 2 nitrofurantoin monohyd/m-cryst [Macrobid] 100 mg capsule 100 mg PO ONCE Qty: 30 RF: 4 metformin 500 mg tablet extended release 24hr 500 mg PO QDAY Qty: 30 RF: 1 baclofen 10 mg tablet 10 mg PO BID PRN (Reason: pain) Qty: 60 RF: 6 polyethylene glycol 3350 [Miralax] 17 gram/dose powder 17 g PO PRN PRN (Reason: Constipation) RF: 0 Follow Up Plan Follow up with: Lesvia Joseph ARNP [Primary Care Provider] - Patient Disposition: Home, Self-Care Plan of Treatment: mendes in place for 2 weeks take antibiotics for 1 week more follow up with PCP on wednesday with INR and BMP follow up with urology for urodynamic studies Prognosis: Fair Rehab Potential: Fair I certify that the patient requires SNF services: No Overall status at discharge: patient is back to baseline Discharge Orders: Discharge Order (Routine); Ordered 02/10/20 Ordered By: Sanjay CASTRO VTE Deep Vein Thrombosis/Pulmonary Embolism Present on Admission: No
[2020-02-10 10:28] LABS: Appearance,Urine CLEAR; Bacteria,Urine 0 /hpf (0); Bilirubin,Urine NEG (NEG); Color,Urine YELLOW; Culture Indicated,Urine YES; Glucose,Urine (UA) NEGATIVE (NEG); Ketones,Urine NEG (NEG); Leukocyte Esterase,Urine 500 /uL (NEG); Nitrate,Urine NEG (NEG); Protein,Urine NEG (NEG); Specific Gravity,Urine 1.013 (1.000-1.035); Urine Blood NEG mg/dL (<0.03); Urine Budding Yeast FEW /hpf (0); Urine RBC 4 /hpf (0-1); Urine Squamous Epithelial Cell 2 /hpf (0-4); Urine WBC 13 /hpf (0-4); Urobilinogen,Urine NEG (NEG)
[2020-02-10] MEDS ORDERED: WARFARIN 3 MG TABLET PO ONE (14:00)
== END 2020-02-10 12:50 | disposition home or self-care (01) | DRG 690 ==
LOC: ED 10:01 → ICU 16:00
PROVIDERS: ADMIT Internal Medicine; ATTEND Internal Medicine

== ENCOUNTER 2022-04-28 17:06 | Inpatient (IN) ==
[2022-04-28] MEDS ORDERED: ONDANSETRON 4 MG/2 ML VIAL IV ONE (17:18)
[2022-04-28] MEDS ORDERED: 0.9 % SODIUM CHLORIDE 500 ML IV ONE ×2 (17:44→17:53)
--- NOTE | 2022-04-28 18:09 | Emergency Department Note ---
Nausea/Vomiting/Diarrhea HPI General Chief complaint: Nausea/Vomiting/Diarrhea Stated complaint: n/v x 1 day Time Seen by Provider: 04/28/22 17:09 Source: EMS Mode of arrival: EMS Limitations: no limitations History of Present Illness HPI Narrative: 81-year-old female presents with 2 days of nausea and vomiting. She has some mild abdominal pain, but is not able to really localize it. She has been having frequent diarrhea. Stool sample was collected today and was guaiac negative. She is on warfarin for atrial fibrillation. Patient does not typically require oxygen, but is needing several liters here. She does have COPD at baseline. She notes that she has had a cough. She lives with her son at home who is also been sick with a respiratory infection. COVID and influenza are negative in the ER today. Related Data Home Medications Medication Instructions Recorded Confirmed ferrous sulfate 325 mg (65 mg 325 mg PO QDAY 05/02/19 03/18/22 iron) tablet (FeroSul) Lactobacillus acidophilus 100 mg PO QDAY 07/02/20 03/18/22 (Acidophilus capsule) melatonin 1 mg tablet 5 mg PO HS PRN Sleep 02/16/22 03/18/22 Previous Rx's Medication Instructions Recorded blood sugar diagnostic (True #50 ea 05/17/19 Metrix Glucose Test Strip) Adjustable Hospital Bed #1 ea 01/18/20 polyethylene glycol 3350 17 17 g PO QDAY #510 grams 08/09/20 gram/dose oral powder (Miralax) nitroglycerin 0.4 mg sublingual 0.4 mg sublingual PRN PRN chest 08/05/21 tablet (Nitrostat) pain #25 tabs Shower Chair #1 ea 08/07/21 Transport Chair #1 ea 08/07/21 phenazopyridine 200 mg tablet 200 mg PO .COMPLEX pain #9 tabs 09/10/21 nystatin 100,000 unit/gram topical 1 applic topical QID #60 grams 09/24/21 powder levothyroxine 50 mcg capsule 50 mcg PO QDAY #90 caps 11/03/21 estradiol 0.01% (0.1 mg/gram) 1 g vaginal 2XW #42.5 grams 11/18/21 vaginal cream (Estrace) hydrochlorothiazide 25 mg tablet 25 mg PO QDAY PRN edema #30 tabs 11/18/21 colchicine 0.6 mg tablet 0.6 mg PO QDAY #30 tabs 01/28/22 trazodone 100 mg tablet See Rx Instructions .Route 02/04/22 .COMPLEX #90 tabs glipizide 5 mg tablet See Rx Instructions .Route 02/19/22 .COMPLEX #15 tabs pregabalin 25 mg capsule (Lyrica) 25 mg PO BID #60 caps 02/19/22 metoprolol succinate 25 mg 25 mg PO QDAY #30 tabs 03/18/22 tablet,extended release 24 hr d-mannose 500 mg capsule 500 mg PO BID #60 caps 03/26/22 warfarin 3 mg tablet See Rx Instructions .Route 04/09/22 .COMPLEX #60 tabs cephalexin 500 mg capsule 1,000 mg PO BID #20 caps 04/13/22 nitrofurantoin 100 mg PO ONCE #30 caps 04/13/22 monohydrate/macrocrystals 100 mg capsule (Macrobid) hydrocodone 10 mg-acetaminophen 1 tab PO Q6H PRN Pain #120 tabs 04/14/22 325 mg tablet pantoprazole 40 mg tablet,delayed 40 mg PO BID #60 tabs 04/16/22 release atorvastatin 40 mg tablet 40 mg PO HS #30 tabs 04/22/22 loperamide 2 mg capsule See Rx Instructions .Route 04/27/22 .COMPLEX #20 caps Allergies Allergy/AdvReac Type Severity Reaction Status Date / Time Sulfa (Sulfonamide Allergy Mild Rash Verified 04/28/22 17:19 Antibiotics) peanut [PEANUT] Allergy Unknown COUGHING Verified 04/28/22 17:19 metformin AdvReac Severe BP issues Verified 04/28/22 17:19 [email or web address] [From Myrbetriq] AdvReac Severe septic Verified 04/28/22 17:19 Doxepin AdvReac Intermediate elevated BP Verified 04/28/22 17:19 Review of Systems ROS ROS Narrative: Narrative: All systems ED: reviewed and negative except as stated. [facility] Narrative Patient History Narrative: Narrative: Medical/Surgical/Family History All Active Problems (Updated 04/28/22 @ 19:53 by Gladis Yao PA-C) CAP (community acquired pneumonia) (Acute) Hearing loss (Acute) Gastric paresis (Acute) IBS (irritable bowel syndrome) (Acute) Atrophic vaginitis (Acute) UTI (urinary tract infection) (Acute) Urinary incontinence (Chronic) Chronic back pain (Chronic) Anemia (Chronic) Hyperlipidemia (Chronic) Diabetes mellitus (Chronic) Asthma (Chronic) Atrial fibrillation (Chronic) GERD (gastroesophageal reflux disease) (Chronic) Pulmonary hypertension (Chronic) Hx pulmonary embolism (Chronic) Coronary artery disease (Chronic) Benign essential hypertension (Chronic) Dyspnea (Chronic) COPD (chronic obstructive pulmonary disease) (Chronic) Chronic diastolic heart failure (Chronic) Hypothyroidism (Chronic) BMI 24.0-24.9, adult (Chronic) Reduced mobility (Chronic) Arthritis (Chronic) Encounter for monitoring Coumadin therapy (Chronic) Weight loss (Chronic) Thyromegaly (Chronic) Tinnitus (Chronic) Anxiety (Chronic) Impairment of balance (Chronic) Dysphagia, unspecified (Chronic) Left lumbar radiculopathy (Chronic) Renal failure (Chronic) TIA (transient ischemic attack) (Chronic) Sinus bradycardia (Chronic) Dermatitis (Chronic) Memory loss (Chronic) Anemia, iron deficiency (Chronic) Back pain (Chronic) Edema (Chronic) Monoclonal paraproteinemia (Chronic) Hip pain (Chronic) Hypertension (Chronic) Knee pain (Chronic) Fatigue (Chronic) Insomnia (Chronic) Decreased mobility in bed (Chronic) Fall (Chronic) Minor head injury (Chronic) Neck pain (Chronic) Simple chronic anemia (Chronic) Falls frequently (Chronic) 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) Urinary tract infection (Chronic) Insomnia (Chronic) Frontal headache (Chronic) Dizziness (Chronic) Adverse reaction to antidepressant drug (Chronic) Weakness (Chronic) Acute UTI (Chronic) History of gout (Chronic) Anemia (Chronic) Acute pyelonephritis (Chronic) Septic shock (Chronic) Elevated INR (Chronic) Sepsis associated hypotension (Chronic) Acute kidney injury (Chronic) Hyponatremia with decreased serum osmolality (Chronic) Metabolic acidosis (Chronic) Hyperkalemia, diminished renal excretion (Chronic) Diarrhea (Chronic) Bladder retention of urine (Chronic) Dysphagia (Chronic) Candiduria (Chronic) High risk medication use (Chronic) Constipation (Chronic) Hypotension (Chronic) Jennifer infection (Chronic) Diarrhea (Chronic) Abdominal pain (Chronic) Nausea (Chronic) Bronchitis (Chronic) Cervical radicular pain (Chronic) Cervical radiculopathy (Chronic) Fall (Acute) Head injury (Acute) Head injury (Acute) Laceration of scalp (Acute) Osteophyte, right shoulder (Acute) Right shoulder tendinitis (Acute) Adhesive capsulitis of right shoulder (Acute) COVID-19 (Acute) Weakness (Acute) Weight gain (Acute) Fatigue (Acute) Compression fx, lumbar spine (Acute) Acute UTI (Acute) Anemia (Acute) Incontinence of urine (Acute) Decreased mobility (Acute) Muscle weakness (Acute) Chest pain (Acute) Heart palpitations (Acute) Dysuria (Acute) Vaginitis (Acute) Gout (Acute) Medical History Abdominal pain Actinic keratosis Acute kidney injury Acute pyelonephritis due to no growth in urine change to rocephin. stop zosyn Acute UTI cover with zosyn renal dosed for now but appears to be a urine retention failure rather than failed keflex based on new ua Adhesive capsulitis of right shoulder Anemia Anemia Anemia, iron deficiency Anxiety Arthritis Asthma Atrial fibrillation Back pain Benign essential hypertension Bladder retention of urine Still retaining urine, question overflow incontinence BMI 24.0-24.9, adult mod protein calorie malnutrition. check a cortisol Bronchitis Jennifer infection Candiduria Cervical radicular pain Cervical radiculopathy Chronic back pain Chronic diastolic heart failure Constipation Constipation COPD (chronic obstructive pulmonary disease) Coronary artery disease Decreased mobility in bed Dermatitis Diabetes mellitus SSI Diarrhea will monitor off zosyn. diarrhea has resolved. Restarted - 05/28/20 Diarrhea Dizziness Dysphagia Dysphagia, unspecified Dyspnea Dysuria Edema Elevated blood pressure reading Elevated INR Encounter for long-term (current) use of medications Encounter for monitoring Coumadin therapy Falls frequently Fatigue Frontal headache GERD (gastroesophageal reflux disease) High risk medication use Hip pain History of echocardiogram (04/07/16) History of gout On chronic daily colchicine. Hx pulmonary embolism hold warfarin due to inr over 5.5 Hyperkalemia, diminished renal excretion improved and resolved. Hyperlipidemia Hypertension Hyponatremia with decreased serum osmolality reolved Hypotension Hypothyroidism cont home med Impairment of balance Insomnia Insomnia Knee pain Left lumbar radiculopathy FCI (current) use of anticoagulants Memory loss Metabolic acidosis resolved Minor head injury Monoclonal paraproteinemia Chronically monitored by PCP for anemia. Nausea Neck pain Chronic Night sweats Osteophyte, right shoulder Pulmonary hypertension Reduced mobility Renal failure Right shoulder tendinitis Sepsis associated hypotension Septic shock Simple chronic anemia Sinus bradycardia Thyromegaly TIA (transient ischemic attack) Tinnitus Urinary incontinence Weakness Weight loss Surgical History H/O heart artery stent x2 post bypass History of History of carpal tunnel repair History of cholecystectomy History of colon surgery History of esophagogastroduodenoscopy (EGD) (09/10/20) History of hernia repair History of open heart surgery 2008 History of surgery 08/08 RFTC Bilat L3-S1 w/sed 07/26/1707/08 MBB #2 Bilat L3-S1 w/sed 06/22/201705/07 MBB #1 Bilat L3-S1 w/sed 05/18/201705/01 Sympathetic Block, Lumbar L1-2 w/o sed 05-04-1105/01 Sympathetic Block L1-2 w/o sed 04-30-11 Status post total shoulder arthroplasty Family History Unknown Heart disease Diabetes Asthma Father Skin cancer Social History Smoking Status: Never smoker Alcohol Intake Frequency: does not drink Substance Use: does not use Exam Narrative Narrative: General: AOx3, NAD, nontoxic appearing. Pleasant and conversant. HEENT: PERRL, EOMI, normocephalic. Moist mucous membranes. Rhinitis. Chest: Symmetric, no pain to palpation Respiratory: Rhonchorous throughout all lung kendrick. No expiratory wheezes. No respiratory distress. Unlabored breathing. Heart: Irregular rate and rhythm, no murmurs/clicks/rubs. Abdomen: Non-tender, Non distended, normal bowel tones. No organomegaly. Extremities: Warm and well perfused. No edema. DP 2+ bilaterally. No venous stasis. Neuro: No focal deficits. Cranial nerves II-XII grossly normal. Skin: Warm dry, no rashes or lesions, no cyanosis. Psych: Normal mood and affect Heme/Lymph: No abnormal bruising General Limitations: no limitations Course Course Course Narrative: 81-year-old female presents with new oxygen requirements and generalized weakness with nausea/vomiting/diarrhea x2 days Reevaluation(s) Reevaluation #1: Obtain basic labs, chest x-ray, UA Given patient's reports of 48 hours of nausea and vomiting, will give 500 mL fluid bolus Reevaluation #2: CBC with a leukocytosis of 12,500 with a neutrophil count of 9.27. Chemistry panel with a creatinine of 0.9, BUN of 15, hematocrit of 37, hemoglobin of 12.6. Sodium is 143, potassium is 3.7. Unfortunately anion gap and CO2 could not be processed due to equipment error. Chest x-ray with possible left lower lobe infiltrate. Patient is requiring 1 to 3 L to keep her sats above 90%. She is otherwise in the high 80s without oxygen. Will treat for commune acquired pneumonia, give IV ceftriaxone and azithromycin. Although curb 65 score is 1 given the patient's new oxygen requirement she will need admission. I reached out to hospitalist for consultation. Vital Signs Vital signs: Vital Signs Temperature 98.9 F 04/28/22 17:16 Pulse Rate 97 H 04/28/22 17:16 Respiratory Rate 22 04/28/22 17:16 Blood Pressure 158/123 04/28/22 17:16 Pulse Oximetry (%) 88 L 04/28/22 17:16 Oxygen Delivery Method 04/28/22 17:16 Temperature 98.9 F 04/28/22 17:16 Pulse Rate 88 04/28/22 19:46 Respiratory Rate 18 04/28/22 19:16 Blood Pressure 119/63 04/28/22 19:46 Pulse Oximetry (%) 95 04/28/22 19:46 Oxygen Delivery Method 04/28/22 19:16 Oxygen Flow Rate (L/min) 2 04/28/22 19:16 MDM MDM Narrative Medical decision making narrative: Community-acquired pneumonia Hypoxia Curb 65 score is 1; however, the patient is requiring oxygen, which is new for her. I reached out to hospitalist for admission and she has been accepted. Lab Data Result diagrams: 04/28/22 17:30 Labs: Lab Results 04/28/22 Range/Units 17:30 WBC 12.5 H (4.5-11.0) K/mcL RBC 3.87 (3.59-5.38) M/mcL Hgb 11.9 (11.2-15.7) g/dL Hct 37.7 (34.1-44.9) % MCV 97.4 (80.0-100.0) fL MCH 30.7 (26.0-34.0) pg MCHC 31.6 (31.0-36.0) g/dL RDW 12.8 (11.5-14.5) % Plt Count 291 (140-440) K/mcL MPV 10.1 (8.8-12.5) fL Immature Gran % (Auto) 0.3 (0.0-0.5) % Neut % (Auto) 74.3 (38.0-78.0) % Lymph % (Auto) 19.0 (15.5-49.0) % Brewster % (Auto) 5.0 (1.0-12.0) % Eos % (Auto) 1.2 (0.0-7.0) % Baso % (Auto) 0.2 (0.0-2.0) % Lymph # (Auto) 2.37 (1.50-4.80) K/mcL Brewster # (Auto) 0.63 (0.10-0.90) K/mcL Eos # (Auto) 0.15 (0.00-0.70) K/mcL Baso # (Auto) 0.02 (0.00-0.30) K/mcL Immature Gran # 0.04 (0.00-0.05) K/mcl Absolute Neutrophils 9.27 H (1.80-8.00) K/mcL ED POC Tests ED POC Tests: BUD - Influenza A Negative BUD - Influenza B Negative BUD - SARS Antigen Negative Discharge Plan Patient/Caregiver Discharge Instructions Pt seen by RUBBER DOWN/PA only: Yes Clinical Impression: CAP (community acquired pneumonia) Patient Disposition: Xfer As Inpt ([facility]) Follow up with: Lesvia Joseph ARNP [Primary Care Provider] - Prescriptions: No Action ferrous sulfate [FeroSul] 325 mg (65 mg iron) tablet 325 mg PO QDAY (DME) True Metrix Glucose Test Strip strip See Rx Instructions .ROUTE .MEDSUPPLY Qty: 50 5RF Rx Instructions: Test blood glucose TID (DME) Adjustable Hospital Bed Qty: 1 0RF Rx Instructions: As directed phenazopyridine 200 mg tablet 200 mg PO .COMPLEX Qty: 9 1RF Rx Instructions: 200 mg PO tid prn for painful urination; levothyroxine 50 mcg capsule 50 mcg PO QDAY Qty: 90 2RF colchicine 0.6 mg tablet 0.6 mg PO QDAY Qty: 30 4RF trazodone 100 mg tablet See Rx Instructions .ROUTE .COMPLEX Qty: 90 2RF Dose Instruction: TAKE ONE TABLET BY MOUTH EVERY NIGHT AT BEDTIME --MAY TAKE UP TO 2.5 TABS PER NIGHT Rx Instructions: TAKE ONE TABLET BY MOUTH EVERY NIGHT AT BEDTIME --MAY TAKE UP TO 2.5 TABS PER NIGHT glipizide 5 mg tablet See Rx Instructions .ROUTE .COMPLEX Qty: 15 3RF Dose Instruction: TAKE 1/2 TABLET BY MOUTH ONCE DAILY Rx Instructions: TAKE 1/2 TABLET BY MOUTH ONCE DAILY pregabalin [Lyrica] 25 mg capsule 25 mg PO BID Qty: 60 3RF d-mannose 500 mg capsule 500 mg PO BID Qty: 60 6RF warfarin 3 mg tablet See Rx Instructions .ROUTE .COMPLEX Qty: 60 0RF Dose Instruction: TAKE 1 TAB ON MON & WED AND 1/2 TAB DAILY REST OF THE WEEK Rx Instructions: TAKE 1 TAB ON 4 days AND 1/2 TAB DAILY REST OF THE WEEK cephalexin 500 mg capsule 1,000 mg PO BID Qty: 20 0RF nitrofurantoin monohyd/m-cryst [Macrobid] 100 mg capsule 100 mg PO ONCE Qty: 30 3RF Rx Instructions: must administer with a meal/food hydrocodone-acetaminophen 10-325 mg tablet 1 tab PO Q6H PRN (Reason: Pain) Qty: 120 0RF Rx Instructions: can fill pantoprazole 40 mg tablet,delayed release (DR/EC) 40 mg PO BID Qty: 60 4RF atorvastatin 40 mg tablet 40 mg PO HS Qty: 30 3RF loperamide 2 mg capsule See Rx Instructions .ROUTE .COMPLEX Qty: 20 4RF Dose Instruction: TAKE 2 CAPSULES AFTER FIRST LOOSE STOOL MAY REPEAT IF THERE IS ADDITIONAL LOOSE STOOL *MAX 8 CAPSULES EVERY 24 HOURS* Rx Instructions: TAKE 2 CAPSULES AFTER FIRST LOOSE STOOL MAY REPEAT IF THERE IS ADDITIONAL LOOSE STOOL *MAX 8 CAPSULES EVERY 24 HOURS* polyethylene glycol 3350 [Miralax] 17 gram/dose powder 17 g PO QDAY Qty: 510 2RF estradiol [Estrace] 0.01 % (0.1 mg/gram) cream 1 g vaginal 2XW Qty: 42.5 3RF hydrochlorothiazide 25 mg tablet 25 mg PO QDAY PRN (Reason: edema) Qty: 30 0RF metoprolol succinate 25 mg tablet extended release 24 hr 25 mg PO QDAY Qty: 30 1RF Lactobacillus acidophilus [Acidophilus] Capsule 100 mg PO QDAY Rx Instructions: give 30 min before meal/food melatonin 1 mg tablet 5 mg PO HS PRN (Reason: Sleep) nitroglycerin [Nitrostat] 0.4 mg tablet, sublingual 0.4 mg SUBLINGUAL PRN PRN (Reason: chest pain) Qty: 25 1RF (DME) Transport Chair See Rx Instructions .Route .MEDSUPPLY Qty: 1 0RF Rx Instructions: As directed (DME) Shower Chair See Rx Instructions .Route .MEDSUPPLY Qty: 1 0RF Rx Instructions: As directed nystatin 100,000 unit/gram powder 1 applic TOPICAL QID Qty: 60 2RF
--- NOTE | 2022-04-28 18:13 | XRay Report ---
HISTORY: Cough, nausea and vomiting FINDINGS: There is elevation of the left diaphragm and small consolidating infiltrate in left lower lobe behind the left heart border. Infiltrate is larger today than it had been on 07/12/21. The remainder the lung kendrick are clear. The heart size and pulmonary vasculature are normal. There are sternal wires. There are several moderate-sized calcified lymph nodes in the mediastinum, superimposed over the suad. These are chronic finding. Right humeral head is deformed due to an old fracture through the neck. There are metal anchors in the left humeral head. IMPRESSION: Scar, atelectasis or pneumonia in the left lower lobe Interpreted and Authenticated by: Jim Serna 04/28/22
[2022-04-28 18:33] LABS: Basophils # (Auto) 0.02 K/mcL (0.00-0.30); Basophils % (Auto) 0.2 % (0.0-2.0); Eosinophils # (Auto) 0.15 K/mcL (0.00-0.70); Eosinophils % (Auto) 1.2 % (0.0-7.0); Hematocrit 37.7 % (34.1-44.9); Hemoglobin 11.9 g/dL (11.2-15.7); Lymphocytes # (Auto) 2.37 K/mcL (1.50-4.80); Mean Cell Volume 97.4 fL (80.0-100.0); Mean Corpuscular HGB Conc 31.6 g/dL (31.0-36.0); Mean Platelet Volume 10.1 fL (8.8-12.5); Monocytes # (Auto) 0.63 K/mcL (0.10-0.90); Neutrophils % (Auto) 74.3 % (38.0-78.0); Platelet Count 291 K/mcL (140-440); RBC 3.87 M/mcL (3.59-5.38); Red Cell Distribution Width 12.8 % (11.5-14.5); WBC 12.5 K/mcL (4.5-11.0)
[2022-04-28] MEDS ORDERED: cefTRIAXone 1 GM VIAL IV ONE (19:29)
[2022-04-28] MEDS ORDERED: AZITHROMYCIN 500 MG in DEXTROSE 5% IN WATER 250 ML IV ONE (19:31)
--- NOTE | 2022-04-28 20:06 | Internal Med History&Physical ---
HPI History of Present Illness Patient information: Note initiated : 04/28/22 at 8:05 pm Service Date, if different from initiated Date: [] Patient: Cecy Mcclellan 81 y/o F admitted on for n/v x 1 day. Chief Complaint: [] History of present illness: Ms. Mcclellan is a 81 year old Female with a history of type 2 diabetes mellitus, atrial fibrillation on Coumadin, COPD, hypothyroidism, GERD, gout, chronic kidney disease stage III who presented to the emergency department for nausea and vomiting that had been occurring for 2 days. The patient also had some abdominal discomfort associated with the vomiting. In the emergency department, patient had a new oxygen requirement of about 2 L/min. Lab work in ED was significant for a leukocytosis with increased absolute neutrophils. INR was 3.3 on Coumadin. Chemistry panel was mostly normal, mildly low phosphorus at 2.2. A chest x-ray showed a infiltrate in the left lower lobe that radiology felt was a scar, atelectasis or pneumonia. Hospital medicine was consulted for admission. The patient has had a cough associated with the nausea and vomiting. She does not have any fevers with her current symptoms. Federica SARS-CoV-2, influenza A, influenza B were negative in the ED. Review of systems Constitutional: no fever, fatigue, or weight loss Eyes: no vision changes or pain Cardiovascular: no chest pain, no palpitations Respiratory: Positive for cough Gastrointestinal: Positive for nausea, vomiting and abdominal discomfort Genitourinary: no dysuria or difficulty voiding Musculoskeletal: no arthralgia or myalgia Integumentary: no skin lesion or wound Neurological: no focal weakness or numbness Physical exam Head: Atraumatic, normal inspection. Eyes: normal appearance, no scleral icterus. Neck: full ROM Respiratory: On 2 L/min nasal cannula, diminished respiratory sounds in the left lung kendrick, no accessory muscle use. No respiratory distress. Cardiovascular: normal rate and rhythm, S1, S2. GI/Abdominal: soft, mildly tender in epigastric region, no guarding. Extremities: Bilateral pitting edema up to knees, full range of motion, nontender. Neurological: CN II-XII intact, intact motor, intact sensation. Psychiatric: normal mood. Skin: warm, normal color PFSH PFSH All Active Problems (Updated 04/28/22 @ 19:53 by Gladis Yao, PA-C) CAP (community acquired pneumonia) (Acute) Hearing loss (Acute) Gastric paresis (Acute) IBS (irritable bowel syndrome) (Acute) Atrophic vaginitis (Acute) UTI (urinary tract infection) (Acute) Urinary incontinence (Chronic) Chronic back pain (Chronic) Anemia (Chronic) Hyperlipidemia (Chronic) Diabetes mellitus (Chronic) Asthma (Chronic) Atrial fibrillation (Chronic) GERD (gastroesophageal reflux disease) (Chronic) Pulmonary hypertension (Chronic) Hx pulmonary embolism (Chronic) Coronary artery disease (Chronic) Benign essential hypertension (Chronic) Dyspnea (Chronic) COPD (chronic obstructive pulmonary disease) (Chronic) Chronic diastolic heart failure (Chronic) Hypothyroidism (Chronic) BMI 24.0-24.9, adult (Chronic) Reduced mobility (Chronic) Arthritis (Chronic) Encounter for monitoring Coumadin therapy (Chronic) Weight loss (Chronic) Thyromegaly (Chronic) Tinnitus (Chronic) Anxiety (Chronic) Impairment of balance (Chronic) Dysphagia, unspecified (Chronic) Left lumbar radiculopathy (Chronic) Renal failure (Chronic) TIA (transient ischemic attack) (Chronic) Sinus bradycardia (Chronic) Dermatitis (Chronic) Memory loss (Chronic) Anemia, iron deficiency (Chronic) Back pain (Chronic) Edema (Chronic) Monoclonal paraproteinemia (Chronic) Hip pain (Chronic) Hypertension (Chronic) Knee pain (Chronic) Fatigue (Chronic) Insomnia (Chronic) Decreased mobility in bed (Chronic) Fall (Chronic) Minor head injury (Chronic) Neck pain (Chronic) Simple chronic anemia (Chronic) Falls frequently (Chronic) halfway (current) use of anticoagulants (Chronic) Urinary tract infection (Chronic) Insomnia (Chronic) Frontal headache (Chronic) Dizziness (Chronic) Adverse reaction to antidepressant drug (Chronic) Weakness (Chronic) Acute UTI (Chronic) History of gout (Chronic) Anemia (Chronic) Acute pyelonephritis (Chronic) Septic shock (Chronic) Elevated INR (Chronic) Sepsis associated hypotension (Chronic) Acute kidney injury (Chronic) Hyponatremia with decreased serum osmolality (Chronic) Metabolic acidosis (Chronic) Hyperkalemia, diminished renal excretion (Chronic) Diarrhea (Chronic) Bladder retention of urine (Chronic) Dysphagia (Chronic) Candiduria (Chronic) High risk medication use (Chronic) Constipation (Chronic) Hypotension (Chronic) Jennifer infection (Chronic) Diarrhea (Chronic) Abdominal pain (Chronic) Nausea (Chronic) Bronchitis (Chronic) Cervical radicular pain (Chronic) Cervical radiculopathy (Chronic) Fall (Acute) Head injury (Acute) Head injury (Acute) Laceration of scalp (Acute) Osteophyte, right shoulder (Acute) Right shoulder tendinitis (Acute) Adhesive capsulitis of right shoulder (Acute) COVID-19 (Acute) Weakness (Acute) Weight gain (Acute) Fatigue (Acute) Compression fx, lumbar spine (Acute) Acute UTI (Acute) Anemia (Acute) Incontinence of urine (Acute) Decreased mobility (Acute) Muscle weakness (Acute) Chest pain (Acute) Heart palpitations (Acute) Dysuria (Acute) Vaginitis (Acute) Gout (Acute) Medical History Abdominal pain Actinic keratosis Acute kidney injury Acute pyelonephritis due to no growth in urine change to rocephin. stop zosyn Acute UTI cover with zosyn renal dosed for now but appears to be a urine retention failure rather than failed keflex based on new ua Adhesive capsulitis of right shoulder Anemia Anemia Anemia, iron deficiency Anxiety Arthritis Asthma Atrial fibrillation Back pain Benign essential hypertension Bladder retention of urine Still retaining urine, question overflow incontinence BMI 24.0-24.9, adult mod protein calorie malnutrition. check a cortisol Bronchitis Jennifer infection Candiduria Cervical radicular pain Cervical radiculopathy Chronic back pain Chronic diastolic heart failure Constipation Constipation COPD (chronic obstructive pulmonary disease) Coronary artery disease Decreased mobility in bed Dermatitis Diabetes mellitus SSI Diarrhea will monitor off zosyn. diarrhea has resolved. Restarted - 05/28/20 Diarrhea Dizziness Dysphagia Dysphagia, unspecified Dyspnea Dysuria Edema Elevated blood pressure reading Elevated INR Encounter for long-term (current) use of medications Encounter for monitoring Coumadin therapy Falls frequently Fatigue Frontal headache GERD (gastroesophageal reflux disease) High risk medication use Hip pain History of echocardiogram (04/07/16) History of gout On chronic daily colchicine. Hx pulmonary embolism hold warfarin due to inr over 5.5 Hyperkalemia, diminished renal excretion improved and resolved. 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 Nausea Neck pain Chronic Night sweats Osteophyte, right shoulder Pulmonary hypertension Reduced mobility Renal failure Right shoulder tendinitis Sepsis associated hypotension Septic shock Simple chronic anemia Sinus bradycardia Thyromegaly TIA (transient ischemic attack) Tinnitus Urinary incontinence Weakness Weight loss Surgical History H/O heart artery stent x2 post bypass History of History of carpal tunnel repair History of cholecystectomy History of colon surgery History of esophagogastroduodenoscopy (EGD) (09/10/20) History of hernia repair History of open heart surgery 2008 History of surgery 08/08 RFTC Bilat L3-S1 w/sed 07/26/1707/08 MBB #2 Bilat L3-S1 w/sed 06/22/201705/07 MBB #1 Bilat L3-S1 w/sed 05/18/201705/01 Sympathetic Block, Lumbar L1-2 w/o sed 05-04-1105/01 Sympathetic Block L1-2 w/o sed 04-30-11 Status post total shoulder arthroplasty Family History Unknown Heart disease Diabetes Asthma Father Skin cancer Social History marital status: single physical activity: none smoking status: Never smoker alcohol intake frequency: does not drink substance use type: does not use seatbelt use: sometimes additional history: DNR as discussed today 02/07/20 MEDS/ALLERGIES Home Medications and Allergies Home Medications Medication Instructions Recorded Confirmed Type ferrous sulfate 325 mg (65 mg 325 mg PO QDAY 05/02/19 03/18/22 History iron) tablet (FeroSul) blood sugar diagnostic (True #50 ea 05/17/19 03/18/22 Rx Metrix Glucose Test Strip) Adjustable Hospital Bed #1 ea 01/18/20 03/18/22 Rx Lactobacillus acidophilus 100 mg PO QDAY 07/02/20 03/18/22 History (Acidophilus capsule) polyethylene glycol 3350 17 17 g PO QDAY #510 grams 08/09/20 03/18/22 Rx gram/dose oral powder (Miralax) nitroglycerin 0.4 mg sublingual 0.4 mg sublingual PRN PRN chest 08/05/21 03/18/22 Rx tablet (Nitrostat) pain #25 tabs Shower Chair #1 ea 08/07/21 03/18/22 Rx Transport Chair #1 ea 08/07/21 03/18/22 Rx phenazopyridine 200 mg tablet 200 mg PO .COMPLEX pain #9 tabs 09/10/21 03/18/22 Rx nystatin 100,000 unit/gram topical 1 applic topical QID #60 grams 09/24/21 03/18/22 Rx powder levothyroxine 50 mcg capsule 50 mcg PO QDAY #90 caps 11/03/21 04/29/22 Rx estradiol 0.01% (0.1 mg/gram) 1 g vaginal 2XW #42.5 grams 11/18/21 04/29/22 Rx vaginal cream (Estrace) hydrochlorothiazide 25 mg tablet 25 mg PO QDAY PRN edema #30 tabs 11/18/21 03/18/22 Rx colchicine 0.6 mg tablet 0.6 mg PO QDAY #30 tabs 01/28/22 04/29/22 Rx trazodone 100 mg tablet See Rx Instructions .Route 02/04/22 04/29/22 Rx .COMPLEX #90 tabs melatonin 1 mg tablet 5 mg PO HS PRN Sleep 02/16/22 04/28/22 History glipizide 5 mg tablet See Rx Instructions .Route 02/19/22 04/29/22 Rx .COMPLEX #15 tabs pregabalin 25 mg capsule (Lyrica) 25 mg PO BID #60 caps 02/19/22 04/29/22 Rx metoprolol succinate 25 mg 25 mg PO QDAY #30 tabs 03/18/22 04/29/22 Rx tablet,extended release 24 hr d-mannose 500 mg capsule 500 mg PO BID #60 caps 03/26/22 Rx warfarin 3 mg tablet See Rx Instructions .Route 04/09/22 04/29/22 Rx .COMPLEX #60 tabs cephalexin 500 mg capsule 1,000 mg PO BID #20 caps 04/13/22 Rx nitrofurantoin 100 mg PO ONCE #30 caps 04/13/22 04/29/22 Rx monohydrate/macrocrystals 100 mg capsule (Macrobid) hydrocodone 10 mg-acetaminophen 1 tab PO Q6H PRN Pain #120 tabs 04/14/22 Rx 325 mg tablet pantoprazole 40 mg tablet,delayed 40 mg PO BID #60 tabs 04/16/22 04/29/22 Rx release atorvastatin 40 mg tablet 40 mg PO HS #30 tabs 04/22/22 04/29/22 Rx loperamide 2 mg capsule See Rx Instructions .Route 04/27/22 04/29/22 Rx .COMPLEX #20 caps Allergies Allergy/AdvReac Type Severity Reaction Status Date / Time Sulfa (Sulfonamide Allergy Mild Rash Verified 04/28/22 17:19 Antibiotics) peanut [PEANUT] Allergy Unknown COUGHING Verified 04/28/22 17:19 metformin AdvReac Severe BP issues Verified 04/28/22 17:19 [email or web address] [From Myrbetriq] AdvReac Severe septic Verified 04/28/22 17:19 Doxepin AdvReac Intermediate elevated BP Verified 04/28/22 17:19 EXAM Constitutional Vitals: Temp Pulse Resp BP Pulse Ox O2 Del Method O2 Flow Rate 98.9 F 88 18 119/63 95 2 04/28/22 17:16 04/28/22 19:46 04/28/22 19:16 04/28/22 19:46 04/28/22 19:46 04/28/22 19:16 04/28/22 19:16 DATA Data Completed and Pending Labs: Labs from last 24 hours 04/28/22 04/28/22 04/28/22 17:30 17:30 17:30 WBC 12.5 H RBC 3.87 Hgb 11.9 Hct 37.7 MCV 97.4 MCH 30.7 MCHC 31.6 RDW 12.8 Plt Count 291 MPV 10.1 Immature Gran % (Auto) 0.3 Neut % (Auto) 74.3 Lymph % (Auto) 19.0 [place] % (Auto) 5.0 Eos % (Auto) 1.2 Baso % (Auto) 0.2 Lymph # (Auto) 2.37 [place] # (Auto) 0.63 Eos # (Auto) 0.15 Baso # (Auto) 0.02 Immature Gran # 0.04 Absolute Neutrophils 9.27 H Sodium Pending Potassium Pending Chloride Pending Carbon Dioxide Pending Anion Gap Pending BUN Pending Creatinine Pending GFR Calculation Pending Glucose Pending Calcium Pending Phosphorus Pending Albumin Pending Procalcitonin Pending A/P Narrative A/P Narrative: Assessment: 81 year old female with a history of hypertension, Afib, COPD, type 2 diabetes mellitus, hypothyroidism, GERD, gout, CKD stage III admitted for acute hypoxic respiratory failure likely secondary to pneumonia. #Acute hypoxic respiratory failure of uncertain etiology, possibly pneumonia #Possible left lower lobe community acquired pneumonia versus scar versus atelectasis versus mass #Possible UTI, prior UTI secondary to Pseudomonas #Bilateral lower extremity pitting edema #COPD, stable #Atrial fibrillation on Coumadin #CKD stage 3 #Essential hypertension #Type 2 diabetes mellitus #Hypothyroid #GERD #Gout Plan -Cefepime and azithromycin for now given possible pneumonia as well as prior UTI secondary to Pseudomonas. -Oxygen supplementation. -Albuterol nebs prn. -Check procalcitonin. -Check PANTHER PCR and respiratory virus panel. -Obtain EKG, troponin and a BNP, consider transthoracic echocardiogram. -Consider CT chest, abdomen, pelvis if work-up does not yield a diagnosis. -Follow CBC, IPP. -Coumadin per pharmacy. -Humalog SSI-low. -Home medications reconciliation. -Consistent carbohydrate diet. -PT and OT consult. 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
[2022-04-28 20:35] LABS: Albumin 3.3 gm/dL (3.2-5.2); Blood Urea Nitrogen 13 mg/dL (8-23); Calcium 8.7 mg/dL (8.6-10.4); Carbon Dioxide 23 mmol/L (22-30); Chloride 102 mmol/L (96-108); Glomerular Filtration Rate 53; Glucose 106 mg/dL (70-105); INR 3.3 (0.9-1.1); Phosphorous 2.2 mg/dL (2.5-4.5); Prothrombin Time 34.3 sec (11.9-14.5)
[2022-04-28 21:30] LABS: Appearance,Urine CLOUDY (Clear); Bacteria,Urine MANY /hpf (0); Bilirubin,Urine NEGATIVE (Negative); Color,Urine LT. YELLOW; Culture Indicated,Urine yes; Glucose,Urine (UA) NEGATIVE (Negative); Ketones,Urine NEGATIVE (Negative); Leukocyte Esterase,Urine LARGE /uL (Negative); Nitrate,Urine NEGATIVE (Negative); Protein,Urine 100 mg/dL (Negative); Specific Gravity,Urine 1.025 (1.000-1.035); Urine Blood MODERATE ery/mcL (Negative); Urine RBC 133 /hpf (0-3); Urine Squamous Epithelial Cell 3 /hpf (0-4); Urine WBC > 182 /hpf (0-4); Urobilinogen,Urine Normal
[2022-04-28] MEDS ORDERED: DEXTROSE 50% 50 ML VIAL IV PRN (21:43)
[2022-04-28] MEDS ORDERED: ONDANSETRON 4 MG/2 ML VIAL IV PRN (21:43)
[2022-04-28] MEDS ORDERED: ALBUTEROL SULFATE 2.5 MG/3 ML NEBULIZER NEB PRN (21:43)
[2022-04-28] MEDS ORDERED: DEXTROSE 31 GM ORAL.SUSP PO PRN (21:43)
[2022-04-28] MEDS: 0.9 % SODIUM CHLORIDE 10 ML SYRINGE IV SCH (22:04)
[2022-04-28] MEDS: INSULIN LISPRO 1 UNIT/0.01 ML UNIT SQ SCH (22:39)
[2022-04-28] MEDS: MELATONIN 3 MG TABLET PO PRN (22:40)
[2022-04-28] MEDS ORDERED: MELATONIN 3 MG TABLET PO ONE (22:47)
[2022-04-29] MEDS: DOCUSATE SODIUM 100 MG CAPSULE PO SCH ×3 (00:46→20:23)
[2022-04-29] MEDS: SENNOSIDES 1 TABLET PO SCH ×2 (00:46→20:23)
[2022-04-29] MEDS: 0.9 % SODIUM CHLORIDE 10 ML SYRINGE IV SCH ×3 (05:25→20:23)
[2022-04-29 06:59] LABS: Basophils # (Auto) 0.02 K/mcL (0.00-0.30); Basophils % (Auto) 0.1 % (0.0-2.0); Eosinophils # (Auto) 0.05 K/mcL (0.00-0.70); Eosinophils % (Auto) 0.4 % (0.0-7.0); Hematocrit 29.3 % (34.1-44.9); Hemoglobin 9.5 g/dL (11.2-15.7); Lymphocytes # (Auto) 2.41 K/mcL (1.50-4.80); Lymphocytes % (Auto) 17.4 % (15.5-49.0); Mean Cell Volume 96.7 fL (80.0-100.0); Mean Corpuscular HGB Conc 32.4 g/dL (31.0-36.0); Monocytes # (Auto) 1.03 K/mcL (0.10-0.90); Monocytes % (Auto) 7.4 % (1.0-12.0); Platelet Count 216 K/mcL (140-440); RBC 3.03 M/mcL (3.59-5.38); WBC 13.8 K/mcL (4.5-11.0)
[2022-04-29 07:03] LABS: ALT/SGPT 7 U/L (<40); AST/SGOT 15 U/L (<32); Albumin 2.4 gm/dL (3.2-5.2); Albumin/Globulin Ratio 0.8 (1.0-2.3); Alkaline Phosphatase 71 U/L (39-117); Bilirubin,Direct < 0.2 mg/dL (0-0.3); Bilirubin,Total 0.3 mg/dL (0.1-1.0); Blood Urea Nitrogen 15 mg/dL (8-23); Calcium 7.8 mg/dL (8.6-10.4); Carbon Dioxide 22 mmol/L (22-30); Chloride 107 mmol/L (96-108); Globulin 3.2 gm/dL (2.2-3.7); Glomerular Filtration Rate 43; Glucose 110 mg/dL (70-105); Lactate Dehydrogenase 181 U/L (135-225); Phosphorous 2.8 mg/dL (2.5-4.5); Triglycerides 63 mg/dL (<150); Uric Acid 5.7 mg/dL (2.5-8.0)
[2022-04-29] MEDS ORDERED: MAGNESIUM SULFATE 2 GM/50 ML BAG IV ONE (07:14)
[2022-04-29] MEDS ORDERED: 0.9 % SODIUM CHLORIDE 1,000 ML IV SCH (07:15)
[2022-04-29] MEDS: INSULIN LISPRO 1 UNIT/0.01 ML UNIT SQ SCH ×4 (08:20→20:24)
[2022-04-29] MEDS: CEFEPIME 2 GM VIAL IV SCH ×2 (08:21→21:50)
[2022-04-29 08:34] LABS: INR 4.3 (0.9-1.1); Prothrombin Time 42.1 sec (11.9-14.5)
[2022-04-29] MEDS ORDERED: ENOXAPARIN 40 MG/0.4 ML SYRINGE SQ SCH (09:00)
[2022-04-29] MEDS ORDERED: cefTRIAXone 1 GM VIAL IV SCH (09:00)
[2022-04-29] MEDS ORDERED: IOPAMIDOL 100 ML BOTTLE IV ONE (11:38)
--- NOTE | 2022-04-29 11:55 | Cat Scan Report ---
History: Evaluate source of infection, nausea and vomiting TECHNIQUE: Following injection of intravenous nonionic contrast the patient was imaged from the mid neck through the lower pelvis. Sagittal and coronal reformats were created. The radiation exposure was limited using dose reduction technology. FINDINGS: CHEST: Patient has a severe kyphotic curvature. There are moderate anterior biconcave wedge compression fractures at T4 and T9. These are of undetermined age and were not present on a prior chest CT done in 2012. There are outside the field of view on the prior abdomen CT done on 09/11/20. There are stable old mild compression fractures at T12-L1 and L3. There is moderate consolidation in the central portion left lower lobe following the superior segment and basilar segments. There is also consolidation in the inferior segment of lingula. The bronchi to the segments are completely occluded. There is mucous extending into the left mainstem bronchus. A thick band of atelectasis is present posteriorly in the left upper lobe paralleling the major fissure. No pleural effusion is present. The right lung is relatively clear. The central pulmonary arteries are normal without evidence of emboli. There is no pleural effusion. Heart size is within upper limits of normal. There is left ventricular prominence. Moderate amount calcified plaque is present in the coronary arteries. There has been prior coronary bypass surgery. Patient has an old fracture in the right humeral head and neck. Abdomen and pelvis: The liver and spleen are normal in size and homogeneous. The gallbladder has been removed. The bile ducts are nondilated. There is atrophy of the pancreas and no evidence of acute pancreatitis or pancreatic mass. Is also mild loss of renal parenchyma bilaterally. The 7 x 8 mm cyst is present medially in the midportion right kidney. There is no renal mass, stone, hydronephrosis or radiographic evidence of pyelonephritis. Moderate amount calcified plaque is present along the wall the aorta. There are dense calcifications at the origins of both renal arteries. Row of anastomotic sutures are seen in the colon at the level of the hepatic flexure. There is no evidence of bowel obstruction or inflammation. No abscess, ascites or adenopathy are present in the abdomen or pelvis. IMPRESSION: Pneumonia in the left lung with the greatest involvement in the left lower lobe Mucous plugging or inflammatory material in the bronchi in the left lung. No acute abnormality within the abdomen or pelvis Moderate compression fractures at T4 and T9 of undetermined age. There is no evidence of discitis, osteomyelitis or bone metastasis. Interpreted and Authenticated by: Jim Serna 04/29/22
[2022-04-29] MEDS ORDERED: 0.9 % SODIUM CHLORIDE 500 ML IV ONE (15:00)
[2022-04-29] MEDS: AZITHROMYCIN 500 MG in DEXTROSE 5% IN WATER 250 ML IV SCH (16:00)
[2022-04-29] MEDS ORDERED: REMDESIVIR 200 MG in 0.9 % SODIUM CHLORIDE 250 ML IV ONE (18:09)
[2022-04-29] MEDS: MELATONIN 3 MG TABLET PO PRN (20:23)
[2022-04-29] MEDS: ACETAMINOPHEN 325 MG TABLET PO PRN (21:51)
[2022-04-30] MEDS: 0.9 % SODIUM CHLORIDE 10 ML SYRINGE IV SCH ×3 (06:09→19:59)
[2022-04-30 07:02] LABS: Basophils # (Auto) 0.02 K/mcL (0.00-0.30); Basophils % (Auto) 0.3 % (0.0-2.0); Eosinophils # (Auto) 0.24 K/mcL (0.00-0.70); Eosinophils % (Auto) 3.3 % (0.0-7.0); Hematocrit 27.3 % (34.1-44.9); Hemoglobin 8.7 g/dL (11.2-15.7); Lymphocytes # (Auto) 1.41 K/mcL (1.50-4.80); Lymphocytes % (Auto) 19.4 % (15.5-49.0); Mean Cell Volume 96.5 fL (80.0-100.0); Mean Corpuscular HGB Conc 31.9 g/dL (31.0-36.0); Mean Platelet Volume 10.2 fL (8.8-12.5); Monocytes # (Auto) 0.57 K/mcL (0.10-0.90); Monocytes % (Auto) 7.8 % (1.0-12.0); Neutrophils % (Auto) 68.9 % (38.0-78.0); Platelet Count 197 K/mcL (140-440); RBC 2.83 M/mcL (3.59-5.38); Red Cell Distribution Width 12.7 % (11.5-14.5); WBC 7.3 K/mcL (4.5-11.0)
[2022-04-30 07:10] LABS: INR 3.8 (0.9-1.1); Prothrombin Time 38.4 sec (11.9-14.5)
[2022-04-30 07:22] LABS: ALT/SGPT 6 U/L (<40); AST/SGOT 15 U/L (<32); Albumin 2.2 gm/dL (3.2-5.2); Albumin/Globulin Ratio 0.7 (1.0-2.3); Alkaline Phosphatase 65 U/L (39-117); Bilirubin,Direct < 0.2 mg/dL (0-0.3); Bilirubin,Total 0.2 mg/dL (0.1-1.0); Blood Urea Nitrogen 17 mg/dL (8-23); Calcium 8.1 mg/dL (8.6-10.4); Carbon Dioxide 21 mmol/L (22-30); Chloride 105 mmol/L (96-108); Globulin 3.2 gm/dL (2.2-3.7); Glomerular Filtration Rate 53; Glucose 90 mg/dL (70-105); Lactate Dehydrogenase 176 U/L (135-225); Triglycerides 55 mg/dL (<150); Uric Acid 5.8 mg/dL (2.5-8.0)
[2022-04-30] MEDS: INSULIN LISPRO 1 UNIT/0.01 ML UNIT SQ SCH ×4 (07:31→20:06)
[2022-04-30] MEDS: DEXAMETHASONE 10 MG/ML VIAL IV SCH (08:18)
[2022-04-30] MEDS: CEFEPIME 2 GM VIAL IV SCH ×2 (08:18→19:57)
[2022-04-30] MEDS: DOCUSATE SODIUM 100 MG CAPSULE PO SCH ×2 (08:19→19:59)
--- NOTE | 2022-04-30 09:23 | EKG ---
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 Measurements Intervals [place] Rate: 45 P: 65 CA: 224 QRS: -21 QRSD: 90 T: 34 QT: 538 QTc: 466 Interpretive Statements Sinus bradycardia Supraventricular bigeminy FIRST DEGREE AV BLOCK Left ventricular hypertrophy Electronically Signed On 04-30-2022 9:23:34 PST by Seymour Serna M.D. /store/[email or web address]/[id number]
[2022-04-30] MEDS ORDERED: LOPERAMIDE 2 MG CAPSULE PO PRN (11:30)
[2022-04-30] MEDS: ACETAMINOPHEN 325 MG TABLET PO PRN ×2 (12:22→19:57)
[2022-04-30] MEDS ORDERED: REMDESIVIR 100 MG in 0.9 % SODIUM CHLORIDE 250 ML IV SCH (13:00)
--- NOTE | 2022-04-30 15:42 | Internal Med Progress Note ---
SUBJECTIVE Subjective Patient information: Note initiated : 04/30/22 at 3:35 pm Service Date, if different from initiated Date: [] Patient: Cecy Mcclellan 81 y/o F admitted on 04/28/22 for n/v x 1 day. Chief Complaint: [] Interval history: Ms. Mcclellan is a 81 year old Female with a history of type 2 diabetes mellitus, atrial fibrillation on Coumadin, COPD, hypothyroidism, GERD, gout, chronic kidney disease stage III who presented to the emergency department for nausea and vomiting that had been occurring for 2 days. The patient also had some abdominal discomfort associated with the vomiting. In the emergency department, patient had a new oxygen requirement of about 2 L/min. Lab work in ED was significant for a leukocytosis with increased absolute neutrophils. INR was 3.3 on Coumadin. Chemistry panel was mostly normal, mildly low phosphorus at 2.2. A chest x-ray showed a infiltrate in the left lower lobe that radiology felt was a scar, atelectasis or pneumonia. Hospital medicine was consulted for admission. The patient has had a cough associated with the nausea and vomiting. She does not have any fevers with her current symptoms. [place] SARS-CoV-2, influenza A, influenza B were negative in the ED. 04/30 Patient tested positive for COVID via [place] PCR yesterday afternoon, started on dexamethasone and remdesivir as she was hypoxic. Overnight, the patient was weaned off oxygen, she is feeling much better and wants to go home however still very weak. Physical therapy recommended low intensity rehab. The patient is unlikely to have her caregivers see her until she has completed quarantine for COVID. The patient is agreeable for low intensity rehab. Awaiting urine culture results, continues on cefepime and azithromycin. Cefepime continued for bacterial pneumonia and possible UTI as the patient has a history of Pseudomonas UTI. Physical exam Head: Atraumatic, normal inspection. Eyes: normal appearance, no scleral icterus. Respiratory: On room air, diminished respiratory sounds in the left lung kendrick, no accessory muscle use. No respiratory distress. Cardiovascular: normal rate and rhythm, S1, S2. GI/Abdominal: soft, mildly tender in epigastric region, no guarding. Extremities: Bilateral pitting edema up to knees, full range of motion, nontender. Neurological: CN II-XII intact, intact motor, intact sensation. Psychiatric: normal mood. Skin: warm, normal color Constitutional Vitals: Vital Signs Temp Pulse Resp BP Pulse Ox O2 Del Method O2 Flow Rate 99.5 F H 104 H 18 169/92 92 1 04/30/22 12:28 04/30/22 12:28 04/30/22 12:28 04/30/22 12:28 04/30/22 12:28 04/30/22 12:28 04/30/22 08:00 Period Temp Pulse Resp BP Sys/Mcghee Pulse Ox O2 Del Method O2 Flow Rate Last 24 Hr 97.9 F-99.5 F 58-104 16-18 110-169/56-92 92-99 Nasal Cannula- Room Air 1-2 Intake and Output 04/30/22 04/30/22 04/30/22 05:59 13:59 21:59 Intake Total 240 370 Output Total 2 1 Balance 238 369 Intake & Output: Intake & Output 04/30/22 04/30/22 04/30/22 05:59 13:59 21:59 Intake Total 240 370 Output Total 2 1 Balance 238 369 Intake: IV 250 Veklury 100 mg In Sodium 250 Chloride 0.9% 250 ml @ 500 mls/ hr IV Q24H [facility] Rx#:[id number] Oral 240 120 Output: # of times incontinent of urine 2 1 Other: Meal Breakfast Percent of Meal Consumed 50% Feeding Ability Assist with Tray Set Up # Voids 1 OBJ DATA Labs CBC & Chem 7: 04/30/22 14:05 04/30/22 05:34 Labs: Abnormal Lab Results 04/30/22 04/30/22 04/30/22 14:05 05:34 05:34 WBC RBC Hgb 9.7 L Hct Immature Gran % (Auto) Lymph # (Auto) [place] # (Auto) Immature Gran # Absolute Neutrophils PT 38.4 H INR 3.8 H Carbon Dioxide 21 L Creatinine Glucose Calcium 8.1 L Phosphorus Magnesium NT-Pro-B Natriuret Pep Total Protein 5.4 L Albumin 2.2 L Albumin/Globulin Ratio 0.7 L Urine Appearance Urine Protein Urine Occult Blood Ur Leukocyte Esterase Urine RBC Urine WBC Urine Bacteria 04/30/22 04/29/22 04/29/22 05:34 12:20 07:47 WBC RBC 2.83 L Hgb 8.7 L 9.4 L Hct 27.3 L Immature Gran % (Auto) Lymph # (Auto) 1.41 L [place] # (Auto) Immature Gran # Absolute Neutrophils PT 42.1 H INR 4.3 H Carbon Dioxide Creatinine Glucose Calcium Phosphorus Magnesium NT-Pro-B Natriuret Pep Total Protein Albumin Albumin/Globulin Ratio Urine Appearance Urine Protein Urine Occult Blood Ur Leukocyte Esterase Urine RBC Urine WBC Urine Bacteria 04/29/22 04/29/22 04/29/22 07:37 05:43 05:43 WBC 13.8 H RBC 3.03 L Hgb 9.5 L Hct 29.3 L Immature Gran % (Auto) 0.7 H Lymph # (Auto) [place] # (Auto) 1.03 H Immature Gran # 0.09 H Absolute Neutrophils 10.24 H PT INR Carbon Dioxide Creatinine 1.2 H Glucose 110 H Calcium 7.8 L Phosphorus Magnesium 1.3 L NT-Pro-B Natriuret Pep 1543.0 H Total Protein 5.6 L Albumin 2.4 L Albumin/Globulin Ratio 0.8 L Urine Appearance Urine Protein Urine Occult Blood Ur Leukocyte Esterase Urine RBC Urine WBC Urine Bacteria 04/28/22 04/28/22 04/28/22 20:05 17:30 17:30 WBC RBC Hgb Hct Immature Gran % (Auto) Lymph # (Auto) [place] # (Auto) Immature Gran # Absolute Neutrophils PT 34.3 H INR 3.3 H Carbon Dioxide Creatinine Glucose 106 H Calcium Phosphorus 2.2 L Magnesium NT-Pro-B Natriuret Pep Total Protein Albumin Albumin/Globulin Ratio Urine Appearance Cloudy A Urine Protein 100 A Urine Occult Blood Moderate A Ur Leukocyte Esterase Large A Urine RBC 133 H Urine WBC > 182 H Urine Bacteria Many A 04/28/22 17:30 WBC 12.5 H RBC Hgb Hct Immature Gran % (Auto) Lymph # (Auto) [place] # (Auto) Immature Gran # Absolute Neutrophils 9.27 H PT INR Carbon Dioxide Creatinine Glucose Calcium Phosphorus Magnesium NT-Pro-B Natriuret Pep Total Protein Albumin Albumin/Globulin Ratio Urine Appearance Urine Protein Urine Occult Blood Ur Leukocyte Esterase Urine RBC Urine WBC Urine Bacteria Meds: Medications Acetaminophen (Acetaminophen 325 Mg Tablet) 650 mg PO Q6HP PRN; Protocol PRN Reason: Per Pain Protocol/Fever > 101 Last Admin: 04/30/22 12:22 Dose: 650 mg Albuterol Sulfate (Albuterol Sulfate 2.5 Mg/3 Ml Nebulizer) 2.5 mg NEB Q2HP PRN PRN Reason: Shortness Of Breath Atorvastatin Calcium (Atorvastatin 40 Mg Tablet) 40 mg PO HS SVETA Cefepime HCl (Cefepime 2 Gm Vial) 2 gm IV Q12H [facility]; Protocol Last Admin: 04/30/22 08:18 Dose: 2 gm Dexamethasone (Dexamethasone 10 Mg/Ml Vial) 6 mg IV DAILY SVETA Stop: 05/10/22 08:59 Last Admin: 04/30/22 08:18 Dose: 6 mg Dextrose (Dextrose 50% 50 Ml Vial) 0 ml IV UD PRN PRN Reason: Per Sliding Scale Diagnostic Test (Pha) (Accu-Chek 1 Each Strip) 1 each FS ACHS SVETA Last Admin: 04/30/22 12:14 Dose: 1 each Docusate Sodium (Docusate Sodium 100 Mg Capsule) 100 mg PO BID SVETA Last Admin: 04/30/22 08:19 Dose: 100 mg Glucose (Dextrose 31 Gm Oral.Susp) 15 gm PO PRN PRN PRN Reason: Hypoglycemia Azithromycin 500 mg/ Dextrose 250 mls @ 250 mls/hr IV Q24H [facility]; Protocol Stop: 04/30/22 16:59 Last Infusion: 04/29/22 16:52 Dose: Infused REMDESIVIR 100 mg/ Sodium (Chloride) 250 mls @ 500 mls/hr IV Q24H [facility] Stop: 05/03/22 13:29 Last Infusion: 04/30/22 13:50 Dose: Infused Insulin Human Lispro (Insulin Lispro 1 Unit/0.01 Ml Unit) 0 unit SQ [facility]; P rotocol Last Admin: 04/30/22 12:21 Dose: 1 units Levothyroxine Sodium (Levothyroxine 50 Mcg Tablet) 50 mcg PO QAMAC SVETA Loperamide HCl (Loperamide 2 Mg Capsule) 4 mg PO DAILYP PRN PRN Reason: Diarrhea Melatonin (Melatonin 3 Mg Tablet) 6 mg PO HSP PRN PRN Reason: Insomnia Ondansetron HCl (Ondansetron 4 Mg/2 Ml Vial) 4 mg IV Q6HP PRN PRN Reason: Nausea And Vomiting Pantoprazole Sodium (Pantoprazole 40 Mg Tablet) 40 mg PO BIDAC SVETA Pregabalin (Pregabalin 25 Mg Capsule) 25 mg PO BID SVETA Senna (Sennosides 1 Tablet) 2 tab PO HS [facility] Last Admin: 04/29/22 20:23 Dose: 2 tab Sodium Chloride (0.9 % Sodium Chloride 10 Ml Syringe) 10 ml IV Q8 [facility] Last Admin: 04/30/22 13:18 Dose: 10 ml Trazodone HCl (Trazodone Hcl 100 Mg Tablet) 0 mg PO HSP PRN PRN Reason: Insomnia Warfarin Sodium (Warfarin Per Pharmacy) 1 order PO DAILY@1400 [facility] Last Admin: 04/30/22 14:32 Dose: Not Given A/P Narrative A/P Narrative: Assessment: 81 year old female with a history of hypertension, Afib, COPD, type 2 diabetes mellitus, hypothyroidism, GERD, gout, CKD stage III admitted for acu te hypoxic respiratory failure likely secondary to community-acquired pneumonia, she also tested positive for COVID-19 and the patient has has a UTI. She has a history of Pseudomonas UTI. #Resolved acute hypoxic respiratory failure of uncertain etiology secondary to community-acquired pneumonia and COVID-19 #Community-acquired pneumonia #COVID-19 #UTI, history of UTI secondary to Pseudomonas #Bilateral lower extremity pitting edema, improved #COPD, stable #Atrial fibrillation on Coumadin #CKD stage 3 #Essential hypertension #Type 2 diabetes mellitus #Hypothyroid #GERD #Gout #Insomnia Plan -Cefepime and azithromycin for now to treat both pneumonia and UTI. -Dexamethasone and remdesivir for COVID-19 illness and hypoxia on admission. -Follow urine culture. -Oxygen supplementation as needed. -Albuterol nebs prn. -Coumadin per pharmacy. -Humalog SSI-low. -Continue home atorvastatin, colchicine, levothyroxine, Protonix, Lyrica, melatonin, trazodone. -Consistent carbohydrate diet. -PT and OT consult. -DVT ppx: Coumadin -CODE STATUS: Full -Disposition: Plan is for swing bed at [facility], probably tomorrow. Time Spent With Patient Time: Total time spent is greater than 50% in coordination of care (as documented) at patient's floor/unit and/or counseling patient:
[2022-04-30] MEDS: AZITHROMYCIN 500 MG in DEXTROSE 5% IN WATER 250 ML IV SCH (16:26)
[2022-04-30] MEDS: PANTOPRAZOLE 40 MG TABLET PO SCH (16:36)
[2022-04-30] MEDS: PREGABALIN 25 MG CAPSULE PO SCH (19:58)
[2022-04-30] MEDS: SENNOSIDES 1 TABLET PO SCH (19:59)
[2022-04-30] MEDS ORDERED: ATORVASTATIN 40 MG TABLET PO SCH (21:00)
[2022-04-30] MEDS ORDERED: MELATONIN 3 MG TABLET PO PRN (21:00)
[2022-04-30] MEDS ORDERED: traZODone HCL 100 MG TABLET PO PRN (21:00)
[2022-05-01] MEDS: 0.9 % SODIUM CHLORIDE 10 ML SYRINGE IV SCH (06:25)
[2022-05-01] MEDS: INSULIN LISPRO 1 UNIT/0.01 ML UNIT SQ SCH ×2 (07:05→11:28)
[2022-05-01] MEDS: ACETAMINOPHEN 325 MG TABLET PO PRN (07:06)
[2022-05-01] MEDS: PANTOPRAZOLE 40 MG TABLET PO SCH (07:06)
[2022-05-01] MEDS ORDERED: LEVOTHYROXINE 50 MCG TABLET PO SCH (07:30)
[2022-05-01 07:31] LABS: Basophils # (Auto) 0 K/mcL (0.00-0.30); Basophils % (Auto) 0 % (0.0-2.0); Eosinophils # (Auto) 0 K/mcL (0.00-0.70); Eosinophils % (Auto) 0 % (0.0-7.0); Hematocrit 28.9 % (34.1-44.9); Hemoglobin 9.4 g/dL (11.2-15.7); Lymphocytes # (Auto) 0.81 K/mcL (1.50-4.80); Lymphocytes % (Auto) 13.6 % (15.5-49.0); Mean Cell Volume 93.8 fL (80.0-100.0); Mean Corpuscular HGB Conc 32.5 g/dL (31.0-36.0); Mean Platelet Volume 10.7 fL (8.8-12.5); Monocytes # (Auto) 0.28 K/mcL (0.10-0.90); Monocytes % (Auto) 4.7 % (1.0-12.0); Neutrophils % (Auto) 81.2 % (38.0-78.0); Platelet Count 243 K/mcL (140-440); RBC 3.08 M/mcL (3.59-5.38); Red Cell Distribution Width 12.6 % (11.5-14.5)
[2022-05-01 07:35] LABS: INR 2.2 (0.9-1.1); Prothrombin Time 25.4 sec (11.9-14.5)
[2022-05-01 07:54] LABS: ALT/SGPT 8 U/L (<40); AST/SGOT 18 U/L (<32); Albumin 2.6 gm/dL (3.2-5.2); Albumin/Globulin Ratio 0.8 (1.0-2.3); Alkaline Phosphatase 71 U/L (39-117); Bilirubin,Direct < 0.2 mg/dL (0-0.3); Bilirubin,Total 0.2 mg/dL (0.1-1.0); Blood Urea Nitrogen 22 mg/dL (8-23); Calcium 8.6 mg/dL (8.6-10.4); Carbon Dioxide 20 mmol/L (22-30); Chloride 105 mmol/L (96-108); Globulin 3.2 gm/dL (2.2-3.7); Glomerular Filtration Rate 53; Glucose 128 mg/dL (70-105); Lactate Dehydrogenase 252 U/L (135-225); Phosphorous 2.9 mg/dL (2.5-4.5); Triglycerides 33 mg/dL (<150)
[2022-05-01] MEDS: CEFEPIME 2 GM VIAL IV SCH (08:53)
[2022-05-01] MEDS: PREGABALIN 25 MG CAPSULE PO SCH (08:54)
[2022-05-01] MEDS: DOCUSATE SODIUM 100 MG CAPSULE PO SCH (08:54)
[2022-05-01] MEDS: DEXAMETHASONE 10 MG/ML VIAL IV SCH (08:54)
[2022-05-01] MEDS ORDERED: COLCHICINE 0.6 MG CAPSULE PO SCH (09:00)
--- NOTE | 2022-05-01 10:57 | Discharge Summary ---
Discharge Provider Provider IMPORTANT FOLLOW-UP INFORMATION FOR PCP: Patient information: Note initiated : 05/01/22 at 10:52 am Service Date, if different from initiated Date: [] Patient: Cecy Mcclellan 81 y/o F admitted on 04/28/22 for n/v x 1 day. Chief Complaint: [] Date of admission: 04/28/22 21:27 Discharge date: 05/01/22 Primary care physician: Lesvia Joseph Consults: 04/28/22 Consult to Physician [CONS] Stat Comment: Consulting Provider: Giacomo Cochran Reason For Exam: Physician to Consult COURSE Hospital Course Hospital course: Ms. Mcclellan is a 81 year old Female with a history of type 2 diabetes mellitus, atrial fibrillation on Coumadin, COPD, hypothyroidism, GERD, gout, chronic kidney disease stage III who presented to the emergency department for nausea a nd vomiting that had been occurring for 2 days. The patient also had some abdominal discomfort associated with the vomiting. In the emergency department, patient had a new oxygen requirement of about 2 L/min. Lab work in ED was significant for a leukocytosis with increased absolute neutrophils. INR was 3.3 on Coumadin. Chemistry panel was mostly normal, mildly low phosphorus at 2.2. A chest x-ray showed a infiltrate in the left lower lobe that radiology felt was a scar, atelectasis or pneumonia. Hospital medicine was consulted for admission. The patient has had a cough associated with the nausea and vomiting. She does not have any fevers with her current symptoms. [place] SARS-CoV-2, influenza A, influenza B were negative in the ED. 04/30 Patient tested positive for COVID via [place] PCR yesterday afternoon, started on dexamethasone and remdesivir as she was hypoxic. Overnight, the patient was weaned off oxygen, she is feeling much better and wants to go home however still very weak. Physical therapy recommended low intensity rehab. The patient is unlikely to have her caregivers see her until she has completed quarantine for COVID. The patient is agreeable for low intensity rehab. Awaiting urine culture results, continues on cefepime and azithromycin. Cefepime continued for bacterial pneumonia and possible UTI as the patient has a history of Pseudomonas UTI. 05/01 Stable overnight, urine culture growing gram-negative bacillus. Completed azithromycin, continue cefepime for possible pneumonia and UTI. Continues on dexamethasone and remdesivir for COVID and oxygen requirement when she was admitted. She is on room air now and doing much better clinically. Discharged to swing bed status at [facility]. DISCHARGED TO SWING BED Physical exam Head: Atraumatic, normal inspection. Eyes: normal appearance, no scleral icterus. Respiratory: On room air, diminished respiratory sounds in the left lung kendrick, no accessory muscle use. No respiratory distress. Cardiovascular: normal rate and rhythm, S1, S2. GI/Abdominal: soft, mildly tender in epigastric region, no guarding. Extremities: Bilateral pitting edema up to knees, full range of motion, nontender. Neurological: CN II-XII intact, intact motor, intact sensation. Psychiatric: normal mood. Skin: warm, normal color Discharge diagnosis: Acute hypoxic respiratory failure Secondary discharge diagnosis: COVID-19 Pneumonia UTI Time Spent with Patient Time attestation: Total time spent providing and/or coordinating discharge services: Time spent: Greater than 30 minutes EXAM Constitutional Vitals: Temp Pulse Resp BP Pulse Ox O2 Del Method O2 Flow Rate 98.4 F 87 16 171/83 96 1 05/01/22 06:37 05/01/22 06:37 05/01/22 06:37 05/01/22 06:37 05/01/22 06:37 05/01/22 08:00 04/30/22 08:00 Discharge Data Data Completed and Pending Labs on day of discharge: Labs from last 24 hours 05/01/22 05/01/22 05/01/22 05:58 05:58 05:58 WBC 6.0 RBC 3.08 L Hgb 9.4 L Hct 28.9 L MCV 93.8 MCH 30.5 MCHC 32.5 RDW 12.6 Plt Count 243 MPV 10.7 Immature Gran % (Auto) 0.5 Neut % (Auto) 81.2 H Lymph % (Auto) 13.6 L [place] % (Auto) 4.7 Eos % (Auto) 0 Baso % (Auto) 0 Lymph # (Auto) 0.81 L [place] # (Auto) 0.28 Eos # (Auto) 0 Baso # (Auto) 0 Immature Gran # 0.03 Absolute Neutrophils 4.84 PT 25.4 H INR 2.2 H Sodium 137 Potassium 4.4 Chloride 105 Carbon Dioxide 20 L Anion Gap 12.0 BUN 22 Creatinine 1.0 GFR Calculation 53 Glucose 128 H Uric Acid 6.0 Calcium 8.6 Phosphorus 2.9 Magnesium 1.8 Total Bilirubin 0.2 Direct Bilirubin < 0.2 GGT 13 AST 18 ALT 8 Alkaline Phosphatase 71 Lactate Dehydrogenase 252 H Total Protein 5.8 L Albumin 2.6 L Globulin 3.2 Albumin/Globulin Ratio 0.8 L Triglycerides 33 04/30/22 14:05 WBC RBC Hgb 9.7 L Hct MCV MCH MCHC RDW Plt Count MPV Immature Gran % (Auto) Neut % (Auto) Lymph % (Auto) [place] % (Auto) Eos % (Auto) Baso % (Auto) Lymph # (Auto) [place] # (Auto) Eos # (Auto) Baso # (Auto) Immature Gran # Absolute Neutrophils PT INR Sodium Potassium Chloride Carbon Dioxide Anion Gap BUN Creatinine GFR Calculation Glucose Uric Acid Calcium Phosphorus Magnesium Total Bilirubin Direct Bilirubin GGT AST ALT Alkaline Phosphatase Lactate Dehydrogenase Total Protein Albumin Globulin Albumin/Globulin Ratio Triglycerides Preliminary micro results at discharge 04/28/22 20:05 Urine Culture - Preliminary Urine - Catheterized Gram negative bacillus Gram negative bacillus#2 Discharge Plan Patient/Caregiver Discharge Instructions Prescriptions: No Action ferrous sulfate [FeroSul] 325 mg (65 mg iron) tablet 325 mg PO QDAY (DME) True Metrix Glucose Test Strip strip See Rx Instructions .ROUTE .MEDSUPPLY Qty: 50 5RF Rx Instructions: Test blood glucose TID (DME) Adjustable Hospital Bed Qty: 1 0RF Rx Instructions: As directed phenazopyridine 200 mg tablet 200 mg PO .COMPLEX Qty: 9 1RF Rx Instructions: 200 mg PO tid prn for painful urination; levothyroxine 50 mcg capsule 50 mcg PO QDAY Qty: 90 2RF colchicine 0.6 mg tablet 0.6 mg PO QDAY Qty: 30 4RF trazodone 100 mg tablet See Rx Instructions .ROUTE .COMPLEX Qty: 90 2RF Dose Instruction: TAKE ONE TABLET BY MOUTH EVERY NIGHT AT BEDTIME --MAY TAKE UP TO 2.5 TABS PER NIGHT Rx Instructions: TAKE ONE TABLET BY MOUTH EVERY NIGHT AT BEDTIME --MAY TAKE UP TO 2.5 TABS PER NIGHT glipizide 5 mg tablet See Rx Instructions .ROUTE .COMPLEX Qty: 15 3RF Dose Instruction: TAKE 1/2 TABLET BY MOUTH ONCE DAILY Rx Instructions: TAKE 1/2 TABLET BY MOUTH ONCE DAILY pregabalin [Lyrica] 25 mg capsule 25 mg PO BID Qty: 60 3RF d-mannose 500 mg capsule 500 mg PO BID Qty: 60 6RF warfarin 3 mg tablet See Rx Instructions .ROUTE .COMPLEX Qty: 60 0RF Dose Instruction: TAKE 1 TAB ON MON & WED AND 1/2 TAB DAILY REST OF THE WEEK Rx Instructions: TAKE 1 TAB ON 4 days AND 1/2 TAB DAILY REST OF THE WEEK cephalexin 500 mg capsule 1,000 mg PO BID Qty: 20 0RF nitrofurantoin monohyd/m-cryst [Macrobid] 100 mg capsule 100 mg PO ONCE Qty: 30 3RF Rx Instructions: must administer with a meal/food hydrocodone-acetaminophen 10-325 mg tablet 1 tab PO Q6H PRN (Reason: Pain) Qty: 120 0RF Rx Instructions: can fill pantoprazole 40 mg tablet,delayed release (DR/EC) 40 mg PO BID Qty: 60 4RF atorvastatin 40 mg tablet 40 mg PO HS Qty: 30 3RF loperamide 2 mg capsule See Rx Instructions .ROUTE .COMPLEX Qty: 20 4RF Dose Instruction: TAKE 2 CAPSULES AFTER FIRST LOOSE STOOL MAY REPEAT IF THERE IS ADDITIONAL LOOSE STOOL *MAX 8 CAPSULES EVERY 24 HOURS* Rx Instructions: TAKE 2 CAPSULES AFTER FIRST LOOSE STOOL MAY REPEAT IF THERE IS ADDITIONAL LOOSE STOOL *MAX 8 CAPSULES EVERY 24 HOURS* polyethylene glycol 3350 [Miralax] 17 gram/dose powder 17 g PO QDAY Qty: 510 2RF estradiol [Estrace] 0.01 % (0.1 mg/gram) cream 1 g vaginal 2XW Qty: 42.5 3RF hydrochlorothiazide 25 mg tablet 25 mg PO QDAY PRN (Reason: edema) Qty: 30 0RF metoprolol succinate 25 mg tablet extended release 24 hr 25 mg PO QDAY Qty: 30 1RF Lactobacillus acidophilus [Acidophilus] Capsule 100 mg PO QDAY Rx Instructions: give 30 min before meal/food melatonin 1 mg tablet 5 mg PO HS PRN (Reason: Sleep) nitroglycerin [Nitrostat] 0.4 mg tablet, sublingual 0.4 mg SUBLINGUAL PRN PRN (Reason: chest pain) Qty: 25 1RF (DME) Transport Chair See Rx Instructions .Route .MEDSUPPLY Qty: 1 0RF Rx Instructions: As directed (DME) Shower Chair See Rx Instructions .Route .MEDSUPPLY Qty: 1 0RF Rx Instructions: As directed nystatin 100,000 unit/gram powder 1 applic TOPICAL QID Qty: 60 2RF Follow Up Plan Follow up with: Lesvia Joseph ARNP [Primary Care Provider] - Disposition: Xfer As Swing Bed (TS) Prognosis: Good Discharge Orders: Discharge Order (Routine); Ordered 05/01/22 Ordered By: Giacomo Cochran
[2022-05-01] MEDS ORDERED: KETOROLAC 15 MG/ML VIAL IV ONE (11:00)
[2022-05-01] MEDS ORDERED: WARFARIN 3 MG TABLET PO ONE (14:00)
== END 2022-05-01 11:50 | disposition swing bed (61) | DRG 189 ==
LOC: ED 17:06 → MEDSUR 21:27
PROVIDERS: ADMIT Internal Medicine; ATTEND Internal Medicine